=== PATIENT | male | born 1950 | race Caucasian/White ===

== ENCOUNTER 2019-08-23 08:04 | Inpatient (IN) | payer MEDICARE, SELFPAY ==
[2019-08-23] VITALS (31 sets, daily range): BP systolic 82–104; BP diastolic 39–62; PULSE 60–74; RESP 14–18; TEMP 35.9–37; O2SAT 92–97
--- NOTE | ~2019-08-23 | XR_ITS ---
XR chest 1V portable 08/23/2019 08:34 Indication: Shortness of breath Procedure: AP portable chest Comparison: No prior studies for comparison. Findings: Status post median sternotomy for CABG. Moderate cardiomegaly. Pacemaker leads in expected position. There are infiltrates of the right mid and bilateral lower lungs. There is right apical sca rring/pleural thickening. Impression: 1: Infiltrates right mid and bilateral lower lungs which may represent atelectasis, mild edema or pne umonia. 2: Moderate cardiomegaly. Reviewed, dictated and finalized at location A. Impression: 1: Infiltrates right mid and bilateral lower lungs which may represent atelecta sis, mild edema or pneumonia. 2: Moderate cardiomegaly.
--- NOTE | 2019-08-23 08:14 | ECG_ITS ---
Measurements Intervals [place] Rate: 60 P: HI: 0 QRS: 265 QRSD: 213 T: 90 QT: 538 QTc: 538 Interpretive Statements ELECTRONIC VENTRICULAR PACEMAKER NO FURTHER INTERPRETATION IS POSSIBLE ATYPICAL ECG Electronically Signed On 08-23-2019 8:50:26 CDT by Dwayne Knight D.O.
[2019-08-23 08:31] LABS: Basophils Percent Auto 0.4 % (0.2-1.2); Eosinophils Absolute Auto 0.1 K/mm3 (0-0.3); Eosinophils Percent Auto 2.1 % (0-4.4); Immature Granulocyte Absolute 0.03 K/mm3 (0.00-0.031); Immature Granulocyte Percent A 0.5 % (0-0.5); Lymphocytes Absolute Auto 0.49 K/mm3 (0.9-3.2); Lymphocytes Percent Auto 8.6 % (18.3-44.2); Mean Corpuscular HGB Conc 29.6 g/dl (32-36); Mean Corpuscular Hemoglobin 27.4 pg (26-34); Mean Corpuscular Volume 92.7 fl (80-100); Mean Platelet Volume 12.7 fl (7.4-10.4); Monocytes Absolute Auto 0.6 K/mm3 (0.1-0.6); Neutrophils Absolute Auto 4.5 K/mm3 (1.3-6.7); Neutrophils Percent Auto 78.4 % (45.5-73.1); Platelet Count Result 96 k/mm3 (150-375); Red Blood Count 2.19 M/mm3 (4.6-6.20); Red Cell Distribution Width 17.2 % (11.5-14.5); White Blood Count 5.7 K/mm3 (4.5-10.0)
[2019-08-23 08:36] LABS: Hematocrit 20.3 % (42.0-52.0)
[2019-08-23 08:42] LABS: Blood Urea Nitrogen 66 mg/dL (9-20); Calcium 9.2 mg/dL (8.4-10.2); Carbon Dioxide 30 mmol/L (22-30); Chloride 91 mmol/L (98-107); Estimated CRCL calculation 12 ml/min; Estimated Glomerular Filt Rate 10; Glucose 112 mg/dL (75-110); Potassium 5.5 mmol/L (3.4-5.0); Sodium 133 mmol/L (137-145)
[2019-08-23 08:43] LABS: INR 1.3; Prothrombin Time 15.6 Seconds (11.1-14.7)
[2019-08-23 08:44] LABS: Partial Thromboplastin Time 38.3 SECONDS (22.3-36.8)
[2019-08-23 08:45] LABS: Anisocytosis 1+ (NORMAL); Hypochromasia 1+ (NORMAL); Platelet Estimate Decreased (Adequate)
--- NOTE | 2019-08-23 08:54 | ED.RECABL ---
HPI - Recheck/Abnormal Lab/Rx General Chief Complaint: Recheck/Abnormal Lab/Rx Stated Complaint: low HGB Time Seen by Provider: 08/23/19 08:07 Source: RN notes reviewed History of Present Illness HPI narrative: Patient presents emergency department from home for low hemoglobin. Patient states he had blood drawn at dialysis on Friday and was called today and told that he cannot have dialysis today as his hemoglobin was low and he needed to go for blood transfusion. Patient states he receives a blood transfusion approximately once every 1 to 2 months. He states that he is followed by Dr. Jarvis for nephrology and receives dialysis on Friday. Patient states he has been seen by GI Dr Grier states that there has been talk about performing a flex sig in order to rule out internal hemorrhoids. Patient states he has been feeling more weak over the past several days and mild shortness of breath with exertion he denies having any fevers or chills chest pain abdominal pain nausea vomiting or any other symptoms Related Data Home Medications Medication Instructions Recorded Confirmed amiodarone 200 mg tablet 200 mg PO DAILY 08/17/19 ascorbic acid (vitamin C) 1,000 mg 1 gm PO DAILY 08/17/19 tablet atorvastatin 20 mg tablet 20 mg PO DAILY 08/17/19 cholecalciferol (vitamin D3) 125 125 mcg PO DAILY 08/17/19 mcg (5,000 unit) capsule gemfibrozil 600 mg tablet 300 mg PO BID tablet 08/17/19 glucosamine 750 gl-mwizjurgquv-qwq 2 tablet PO DAILY tablet 08/17/19 no1 644 mg-C 30 mg-daiana 1 mg tablet levothyroxine 150 mcg tablet 150 mcg PO DAILY 08/17/19 magnesium 200 mg tablet 400 mg PO DAILY tablet 08/17/19 mecobalamin (vitamin B12) 5,000 mcg PO 08/17/19 mcg disintegrating tablet metoprolol tartrate 25 mg tablet 12.5 mg PO DAILY tablet 08/17/19 mexiletine 150 mg capsule 150 mg PO Q12H cap 08/17/19 midodrine 10 mg tablet 20 mg PO TID tablet 08/17/19 Allergies Allergy/AdvReac Type Severity Reaction Status Date / Time sulfamethoxazole AdvReac Severe severe Verified 08/23/19 08:22 [From Bactrim] itching trimethoprim [From Bactrim] AdvReac Severe severe Verified 08/23/19 08:22 itching lisinopril AdvReac Cough Verified 08/23/19 08:23 Review of Systems Review of Systems: Narrative: Gen.: Denies fevers or chills ENT: Denies congestion Respiratory: Reports shortness of breath with exertion, denies cough CV: Denies chest pain or palpitations GI: Denies abdominal pain nausea, emesis or diarrhea reports chronic renal failure dialysis Musculoskeletal: Denies back pain or muscle pain Neuro: Denies numbness, tingling, weakness or focal weakness Skin: Denies rash Except as documented, all other systems reviewed and negative [facility] Past Medical History Medical History Afib Charcot foot due to diabetes mellitus CHF (congestive heart failure) Dialysis patient ESRD (end stage renal disease) Hypothyroidism Surgical History Surgical History History of bilateral knee replacement History of cardiac radiofrequency ablation (RFA) History of mitral valve repair History of tricuspid valve repair S/P implantation of automatic cardioverter/defibrillator (AICD) Social History Social History Smoking status: Never smoker Alcohol intake: never Substance use: never Substance use type: does not use Gender identity (if verbalized by the patient): Male Exam Narrative: Exam Narrative: APPEARANCE: No acute distress, nontoxic, resting in bed EYES: EOMI HEENT: Normocephalic, atraumatic, OMM RESPIRATORY: No respiratory distress Clear to auscultation bilaterally with no rhonchi wheezing or rales. CARDIOVASCULAR: Regular rate and rhythm without murmurs rubs or gallops. ABDOMINAL: Soft, nontender, nondistended, no rebound or guarding Rectal: No hemor
--- NOTE | 2019-08-23 11:15 | ADMGEN ---
This patient, Raymundo Azevedo, was admitted to Medical Room 341-01. Patient/family oriented to hospital policies and general routines including ID bracelet, bed and alarms, visiting hours, pain management, procedures, bathroom and other care routines, personal items, smoking policy, room service/diet, and visiting hours. Valuables list has been completed. Information on how to activate the Rapid Response Team has been discussed. Patient/Family are encouraged to report perceived risks to care and to ask questions if they do not understand what they are told or what they should do.
[2019-08-23 12:35] LABS: Hematocrit 19.9 % (42.0-52.0)
--- NOTE | 2019-08-23 13:09 | WPDGICN ---
Assessment and Plan Assessment and plan (1) Symptomatic anemia: Code(s): D64.9 - Anemia, unspecified Status: Acute Assessment and Plan: transfuse to keep hb>7, he has chronic anemia probably due to renal disease but also noted dark stools will proceed with egd and colonoscopy tomorrow (2) GIB (gastrointestinal bleeding): Qualifiers: GI bleed type/associated pathology: unspecified gastrointestinal hemorrhage type Qualified Code(s): K92.2 - Gastrointestinal hemorrhage, unspecified Code(s): K92.2 - Gastrointestinal hemorrhage, unspecified Status: Acute Assessment and Plan: monitor h/h more recommendations after scope start bowel prep today (3) CHF (congestive heart failure): Qualifiers: Heart failure type: unspecified Heart failure chronicity: chronic Qualified Code(s): I50.9 - Heart failure, unspecified Code(s): I50.9 - Heart failure, unspecified Status: Acute (4) ESRD (end stage renal disease): Code(s): N18.6 - End stage renal disease Status: Acute (5) Dialysis patient: Code(s): Z99.2 - Dependence on renal dialysis Status: Acute GI Consult Note Consult date/time: 08/23/19 13:09 Reason for consult: symptomatic anemia HPI: Raymundo Azevedo is a 69 year old male with history of ESRD on M-W-F for almost 1 year, DM (does not need insulin anymore), CHF s/p aicd, Afib and chronic anemia (had blood transfusion previously, every 2 months or so). He went to dialysis today but told that hb too low and sent to ER, Hb 6. He had a colonoscopy about 1 year ago at [facility], had hemorrhoids. Dr Grier has performed hemorrhoidal banding about a month ago. He noted darker stools than usual for almost a month, also more tired. He says that had EGD but several years ago. Review of Systems Constitutional: Constitutional: Denies chills, Reports fatigue and Denies headache(s) Eyes: Eyes: Denies blurry vision ENT: Reports Normal hearing present, Denies headache(s) and Denies neck pain Cardiovascular: Cardiovascular: Denies chest pain and Denies dyspnea Respiratory: Respiratory: Denies dyspnea Gastrointestinal: Gastrointestinal: Reports no additional gastrointestinal complaints Genitourinary: Comments: on dialysis Musculoskeletal: Musculoskeletal: Denies neck pain Integumentary/Breasts: Skin/Breast: Denies dry skin Neurologic: Reports Normal hearing present, Denies headache(s) and Denies weakness Psychiatric: Psychiatric: Denies anxiety Endocrine: Endocrine: Denies change in body appearance Hematologic/Lymphatic: Hematologic/Lymphatic: Denies easy bleeding Allergic/Immunologic: Allergic/Immunologic: Denies urticaria PMFSH Past Medical History Medical History Afib Charcot foot due to diabetes mellitus CHF (congestive heart failure) Dialysis patient ESRD (end stage renal disease) Hypothyroidism Surgical History Surgical History History of bilateral knee replacement History of cardiac radiofrequency ablation (RFA) History of mitral valve repair History of tricuspid valve repair S/P implantation of automatic cardioverter/defibrillator (AICD) Social History Social History Smoking status: Never smoker Alcohol intake: never Substance use: never Substance use type: does not use Gender identity (if verbalized by the patient): Male Spiritual care concerns: No Meds Home Medications and Allergies Home Medications Medication Instructions Recorded Confirmed Type amiodarone 200 mg tablet 200 mg PO DAILY 08/17/19 08/23/19 History ascorbic acid (vitamin C) 1,000 mg 1 gm PO DAILY 08/17/19 08/23/19 History tablet atorvastatin 20 mg tablet 20 mg PO DAILY 08/17/19 08/23/19 History cholecalciferol (vitamin D3) 125 125 mcg PO DAILY 08/17/19 08/23/19 History
--- NOTE | 2019-08-23 17:50 | PC.NURSE ---
To dialysis via bed.
--- NOTE | 2019-08-23 18:50 | PM.CNNEP ---
Assessment and Plan Additional Plan 1. ESRD on Hemodialysis MWF. Patient is being dialyzed and HD treatment is supervised. One unit of PRBCs is being transfused during Hemodialysis. He is tolerating hemodialysis treatment fairly well. 2. Anemia secondary to acute GI blood loss and also anemia of chronic kidney disease. We will monitor H and H. 3. Hypertension. Blood pressure has been running soft. no new meds. 4. Renal Osteodystrophy continue current meds. 5. GI BLeed. management per GI and primary team. 6. Hyperkalemia -- correct with hemodialysis treatment. we will give 2K bath during HD . Thanks for allowing us to participate in the care of this patient. we will follow him closely. History of Present Illness Reason for Consult Consult date: 08/23/19 Reason for consult: end stage renal disease Chief Complaint Chief complaint: anemia/lower GI bleed/CRF with dialysis Review of Systems Review of Systems: All systems reviewed & are unremarkable except as noted in HPI and below (HPI) [facility] Past Medical History Medical History (Updated 08/23/19 @ 13:16 by Florencio Bourgeois MD) Afib Charcot foot due to diabetes mellitus CHF (congestive heart failure) Dialysis patient ESRD (end stage renal disease) GIB (gastrointestinal bleeding) Hypothyroidism Surgical History Surgical History History of bilateral knee replacement History of cardiac radiofrequency ablation (RFA) History of mitral valve repair History of tricuspid valve repair S/P implantation of automatic cardioverter/defibrillator (AICD) Social History Social History Smoking status: Never smoker Alcohol intake: never Substance use: never Substance use type: does not use Gender identity (if verbalized by the patient): Male Spiritual care concerns: No Meds Home Medications and Allergies Home Medications Medication Instructions Recorded Confirmed Type amiodarone 200 mg tablet 200 mg PO DAILY 08/17/19 08/23/19 History ascorbic acid (vitamin C) 1,000 mg 1 gm PO DAILY 08/17/19 08/23/19 History tablet atorvastatin 20 mg tablet 20 mg PO DAILY 08/17/19 08/23/19 History cholecalciferol (vitamin D3) 125 125 mcg PO DAILY 08/17/19 08/23/19 History mcg (5,000 unit) capsule gemfibrozil 600 mg tablet 300 mg PO BID tablet 08/17/19 08/23/19 History glucosamine 750 fy-dmrybksocju-wxu 2 tablet PO DAILY tablet 08/17/19 08/23/19 History no1 644 mg-C 30 mg-daiana 1 mg tablet levothyroxine 150 mcg tablet 150 mcg PO DAILY 08/17/19 08/23/19 History magnesium 200 mg tablet 400 mg PO DAILY tablet 08/17/19 08/23/19 History mecobalamin (vitamin B12) 5,000 5,000 mcg PO DAILY 08/17/19 08/23/19 History mcg disintegrating tablet metoprolol tartrate 25 mg tablet 12.5 mg PO DAILY tablet 08/17/19 08/23/19 History mexiletine 150 mg capsule 150 mg PO Q12H cap 08/17/19 08/23/19 History midodrine 10 mg tablet 20 mg PO TID tablet 08/17/19 08/23/19 History Allergies Allergy/AdvReac Type Severity Reaction Status Date / Time sulfamethoxazole AdvReac Severe severe Verified 08/23/19 08:22 [From Bactrim] itching trimethoprim [From Bactrim] AdvReac Severe severe Verified 08/23/19 08:22 itching lisinopril AdvReac Cough Verified 08/23/19 08:23 Vital Signs Vital Signs - 24 hr 08/23/19 08:09 08/23/19 08:40 08/23/19 09:54 Temperature 36.6 C Pulse Rate 62 74 Respiratory Rate 18 18 18 Blood Pressure 104/49 L 97/53 L Pulse Oximetry 93 93 93 08/23/19 12:33 08/23/19 14:00 08/23/19 18:25 Temperature 35.9 C L 36.8 C Pulse Rate 68 66 61 Respiratory Rate 16 14 18 Blood Pressure 89/40 L 91/47 L Pulse Oximetry 96 97 97 08/23/19 18:40 Temperature 36.6 C Pulse Rate 60 Respiratory Rate 16 Blood Pressure 97/45 L Pulse Oximetry Exam Const: General: comfortable and no acute distress HENMT: Ears: TM abnormal General
[2019-08-23 20:57] LABS: Hepatitis B Surface Antigen Negative (Negative)
[2019-08-23 21:15] LABS: Hepatitis B Surface Anti Res Negative
--- NOTE | 2019-08-23 22:25 | PC.NURSE ---
Pt received from dialysis. 1 L removed and pt stable during process. Received 1 unit of blood during dialysis.
[2019-08-23] MEDS: PEG (High)/E-LYTE SOLN 4,000 ML BTL 4000 ML PO (22:34)
[2019-08-23] MEDS: BISACODYL 5 MG TABLET EC 20 MG PO (22:37)
[2019-08-23 23:22] LABS: Hematocrit 23.9 % (42.0-52.0); Hemoglobin 7.3 g/dL (14.0-18.0)
--- NOTE | 2019-08-23 23:42 | PC.NURSE ---
Pt finished bowel prep at 2330.
[2019-08-24] VITALS (23 sets, daily range): BP systolic 81–105; BP diastolic 41–56; PULSE 52–80; RESP 16–20; TEMP 36.1–36.8; O2SAT 93–100
--- NOTE | 2019-08-24 00:01 | PM.IMHP ---
H&P: HPI History of Present Illness Chief complaint: anemia/lower GI bleed/CRF with dialysis Narrative: This is a 69 year old male with known ESRD on hemodialysis M/W/F, CHF, and atrial fibrillation who presented to the hospital for evaluation of low hemoglobin and hematocrit which was checked this past Friday at the dialysis center. The patient has had ongoing dizziness, fatgue, and exertional shortness of breath. He denies any fevers, chills, chest pain, nausea, vomiting, abdominal pain, dysuria, hematuria, or focal weakness. He has noticed that he has started to have dark black stools. Approximately 3 weeks ago he had a lower GI bleed and underwent hemorrhoidal banding. At that time he also received a blood transfusion. His last colonoscopy was over 1 year ago and was normal according to him. He denies using any blood thinners. The patient was evaluated and found to have a low H/H today in the ER. He was admitted to our service and Gastroenterology has been consulted. The patient has already gotten 1 unit of pRBCs transfused and is undergoing bowel prep for a colonoscopy tomorrow. He has no other complaints at this time. Review of Systems Review of Systems: All systems reviewed & are unremarkable except as noted in HPI and below PMFSH Past Medical History Medical History (Updated 08/25/19 @ 04:02 by Tuan Harding MD) Afib Charcot foot due to diabetes mellitus CHF (congestive heart failure) Diabetes mellitus Dialysis patient ESRD (end stage renal disease) GIB (gastrointestinal bleeding) Hypothyroidism Surgical History Surgical History History of bilateral knee replacement History of cardiac radiofrequency ablation (RFA) History of mitral valve repair History of tricuspid valve repair S/P implantation of automatic cardioverter/defibrillator (AICD) Family History Family History Mother Hypertension Social History Social History Smoking status: Never smoker Alcohol intake: never Substance use: never Substance use type: does not use Gender identity (if verbalized by the patient): Male Spiritual care concerns: No Meds Home Medications and Allergies Home Medications Medication Instructions Recorded Confirmed Type amiodarone 200 mg tablet 200 mg PO DAILY 08/17/19 08/23/19 History ascorbic acid (vitamin C) 1,000 mg 1 gm PO DAILY 08/17/19 08/23/19 History tablet atorvastatin 20 mg tablet 20 mg PO DAILY 08/17/19 08/23/19 History cholecalciferol (vitamin D3) 125 125 mcg PO DAILY 08/17/19 08/23/19 History mcg (5,000 unit) capsule gemfibrozil 600 mg tablet 300 mg PO BID tablet 08/17/19 08/23/19 History glucosamine 750 it-gsittsdwgpz-kfe 2 tablet PO DAILY tablet 08/17/19 08/23/19 History no1 644 mg-C 30 mg-daiana 1 mg tablet levothyroxine 150 mcg tablet 150 mcg PO DAILY 08/17/19 08/23/19 History magnesium 200 mg tablet 400 mg PO DAILY tablet 08/17/19 08/23/19 History mecobalamin (vitamin B12) 5,000 5,000 mcg PO DAILY 08/17/19 08/23/19 History mcg disintegrating tablet metoprolol tartrate 25 mg tablet 12.5 mg PO DAILY tablet 08/17/19 08/23/19 History mexiletine 150 mg capsule 150 mg PO Q12H cap 08/17/19 08/23/19 History midodrine 10 mg tablet 20 mg PO TID tablet 08/17/19 08/23/19 History Allergies Allergy/AdvReac Type Severity Reaction Status Date / Time sulfamethoxazole AdvReac Severe severe Verified 08/23/19 08:22 [From Bactrim] itching trimethoprim [From Bactrim] AdvReac Severe severe Verified 08/23/19 08:22 itching lisinopril AdvReac Cough Verified 08/23/19 08:23 Vital Signs Vital Signs - 24 hr 08/23/19 08:09 08/23/19 08:40 08/23/19 09:54 Temperature 36.6 C Pulse Rate 62 74 Respiratory Rate 18 18 18 Blood Pressure 104/49 L 97/53 L Pulse Oximetry 93 93 93 08/23/19 12:00 08/23/19 12:33 06
[2019-08-24 00:55] LABS: Glucose Point of Care 85 (65-105)
[2019-08-24] MEDS: LEVOTHYROXINE SODIUM INJ 100 MCG/5 ML VIAL 75 MCG IV PUSH (05:45)
[2019-08-24] MEDS: MAGNESIUM CITRATE 300 ML BTL PO (05:46)
[2019-08-24 05:57] LABS: Glucose Point of Care 81 (65-105)
[2019-08-24 06:18] LABS: Basophils Percent Auto 0.2 % (0.2-1.2); Eosinophils Absolute Auto 0.1 K/mm3 (0-0.3); Eosinophils Percent Auto 2.1 % (0-4.4); Hematocrit 21.6 % (42.0-52.0); Immature Granulocyte Absolute 0.02 K/mm3 (0.00-0.031); Immature Granulocyte Percent A 0.5 % (0-0.5); Lymphocytes Absolute Auto 0.44 K/mm3 (0.9-3.2); Lymphocytes Percent Auto 10.1 % (18.3-44.2); Mean Corpuscular Hemoglobin 27.6 pg (26-34); Mean Corpuscular Volume 88.9 fl (80-100); Mean Platelet Volume 12.4 fl (7.4-10.4); Monocytes Absolute Auto 0.5 K/mm3 (0.1-0.6); Monocytes Percent Auto 10.3 % (2.6-8.5); Neutrophils Absolute Auto 3.4 K/mm3 (1.3-6.7); Neutrophils Percent Auto 76.8 % (45.5-73.1); Platelet Count Result 91 k/mm3 (150-375); Red Blood Count 2.43 M/mm3 (4.6-6.20); Red Cell Distribution Width 17.3 % (11.5-14.5); White Blood Count 4.4 K/mm3 (4.5-10.0)
[2019-08-24 06:22] LABS: Hemoglobin 6.7 g/dL (14.0-18.0)
[2019-08-24 06:33] LABS: Blood Urea Nitrogen 23 mg/dL (9-20); Calcium 8.6 mg/dL (8.4-10.2); Carbon Dioxide 37 mmol/L (22-30); Chloride 93 mmol/L (98-107); Estimated CRCL calculation 22 ml/min; Estimated Glomerular Filt Rate 22; Glucose 76 mg/dL (75-110); Potassium 3.3 mmol/L (3.4-5.0); Sodium 137 mmol/L (137-145)
[2019-08-24] MEDS: SODIUM CHLORIDE 0.9% IV 250 ML 30 ML IV CONT ×2 (07:51→13:10)
--- NOTE | 2019-08-24 09:06 | PM.PNNEP ---
Progress Note: A&P Assessment and Plan (1) GIB (gastrointestinal bleeding): Qualifiers: GI bleed type/associated pathology: unspecified gastrointestinal hemorrhage type Qualified Code(s): K92.2 - Gastrointestinal hemorrhage, unspecified Code(s): K92.2 - Gastrointestinal hemorrhage, unspecified Status: Acute (2) ESRD (end stage renal disease): Code(s): N18.6 - End stage renal disease Status: Acute Assessment and Plan: ESRD GI bleed with acute blood loss anemia Anemia of CKD SHPT DMT2 with nephropathy Hypotension Plan: Left basilar crackles, heplock IVF, getting blood, NS if needed IV later if further loss in blood PPI is OK as discussed with Hospitalist team HD in am will follow Subjective Date/time seen: 08/24/19 09:06 ESRD follow up No hematemesis, no blood noted in stool No SOB Tolerated HD yesterday Removed 2 L fluid Getting blood transfusion Exam Narrative: Exam Narrative: Average built, pale, JVD is not seen, RRR, lungs left basilar crackles, soft abdomen, no edema Objective Data Vital Signs Vital Signs: Vital Signs - 24 hr 08/23/19 09:54 08/23/19 12:00 08/23/19 12:33 Temperature Pulse Rate 74 63 68 Respiratory Rate 18 16 Blood Pressure 97/53 L Pulse Oximetry 93 96 08/23/19 14:00 08/23/19 16:00 08/23/19 17:55 Temperature 35.9 C L 36.3 C L Pulse Rate 66 62 61 Respiratory Rate 14 16 Blood Pressure 89/40 L 91/47 L Pulse Oximetry 97 08/23/19 18:11 08/23/19 18:15 08/23/19 18:25 Temperature 36.8 C Pulse Rate 60 60 61 Respiratory Rate 18 Blood Pressure 89/47 L 90/47 L 91/47 L Pulse Oximetry 97 08/23/19 18:30 08/23/19 18:40 08/23/19 18:45 Temperature 36.6 C Pulse Rate 60 60 60 Respiratory Rate 16 Blood Pressure 93/45 L 97/45 L 97/45 L Pulse Oximetry 08/23/19 19:00 08/23/19 19:09 08/23/19 19:15 Temperature 36.3 C L Pulse Rate 60 60 60 Respiratory Rate 18 Blood Pressure 93/44 L 93/44 L 96/41 L Pulse Oximetry 08/23/19 19:30 08/23/19 19:45 08/23/19 20:00 Temperature Pulse Rate 60 62 61 Respiratory Rate Blood Pressure 89/43 L 91/40 L 89/42 L Pulse Oximetry 08/23/19 20:15 08/23/19 20:30 08/23/19 20:45 Temperature Pulse Rate 60 60 64 Respiratory Rate Blood Pressure 93/43 L 88/43 L 92/47 L Pulse Oximetry 08/23/19 21:00 08/23/19 21:03 08/23/19 21:15 Temperature 37.0 C Pulse Rate 65 65 Respiratory Rate Blood Pressure 85/42 L 82/41 L Pulse Oximetry 08/23/19 21:30 08/23/19 21:45 08/23/19 21:56 Temperature 37.0 C Pulse Rate 64 63 63 Respiratory Rate 16 Blood Pressure 98/49 L 98/62 L 86/44 L Pulse Oximetry 08/23/19 22:00 08/23/19 22:32 08/24/19 00:00 Temperature 36.2 C L 36.2 C L Pulse Rate 66 66 70 Respiratory Rate 16 16 Blood Pressure 92/39 L 92/39 L Pulse Oximetry 92 92 08/24/19 02:33 08/24/19 04:00 08/24/19 05:53 Temperature 36.2 C L 36.4 C Pulse Rate 65 63 61 Respiratory Rate 16 16 Blood Pressure 98/43 L 81/43 L Pulse Oximetry 99 93 08/24/19 08:00 08/24/19 08:23 Temperature 36.2 C L 36.3 C L Pulse Rate 60 62 Respiratory Rate 16 16 Blood Pressure 90/42 L 100/56 L Pulse Oximetry 96 96 Intake/Output Intake/Output: Intake & Output 08/21/19 08/22/19 08/23/19 08/24/19 23:59 23:59 23:59 23:59 Intake Total 1080 0 Output Total 2400 Balance -1320 0 Meds/Results Medications: Active Medications Generic Name Dose Route Start Last Admin Trade Name Freq PRN Reason Stop Dose Admin Dextrose 12.5 gm 08/24/19 00:12 Dextrose 50% Syringe IV PUSH PRN PRN Hypoglycemia Protocol Glucagon 1 mg 08/24/19 00:12 Glucagon For Inj IM PRN PRN Hypoglycemia Protocol Dextrose 1,000 mls @ 100 mls/hr 08/24/19 00:12 Dextrose 5% 1,000 Ml IVPB PRN PRN Hypoglycemia Protocol Sodium Chloride 250 mls @ 30 mls/hr 08/24/19 07:30 08/24/19 07:51 Normal
--- NOTE | 2019-08-24 10:37 | WPDANESEPPF ---
Anes - Initial Pre Proc Eval Procedure: Operation Date: 08/24/19 11:15 Proposed Procedures p Esophagogastroduodenoscopy & Colonoscopy - Florencio Bourgeois MD Date/Time: 08/24/19 10:37 Surgeon: Priscilla Molina PA-C Pre Op Diagnosis: anemia/lower GI bleed/CRF with dialysis Patient Data Age: 69 Gender: M Height: 5 ft 10 in Weight: 74.3 kg Last Vital Signs Temp 97.4 F L 08/24/19 08:23 Pulse 62 08/24/19 08:23 Resp 16 08/24/19 08:23 BP 100/56 L 08/24/19 08:23 Pulse Ox 96 08/24/19 08:23 Allergies Allergy/AdvReac Type Severity Reaction Status Date / Time sulfamethoxazole AdvReac Severe severe Verified 08/23/19 08:22 [From Bactrim] itching trimethoprim [From Bactrim] AdvReac Severe severe Verified 08/23/19 08:22 itching lisinopril AdvReac Cough Verified 08/23/19 08:23 Home Medications Medication Instructions Recorded Confirmed Type amiodarone 200 mg tablet 200 mg PO DAILY 08/17/19 08/23/19 History ascorbic acid (vitamin C) 1,000 mg 1 gm PO DAILY 08/17/19 08/23/19 History tablet atorvastatin 20 mg tablet 20 mg PO DAILY 08/17/19 08/23/19 History cholecalciferol (vitamin D3) 125 125 mcg PO DAILY 08/17/19 08/23/19 History mcg (5,000 unit) capsule gemfibrozil 600 mg tablet 300 mg PO BID tablet 08/17/19 08/23/19 History glucosamine 750 ui-kyzghrxwcki-tuc 2 tablet PO DAILY tablet 08/17/19 08/23/19 History no1 644 mg-C 30 mg-daiana 1 mg tablet levothyroxine 150 mcg tablet 150 mcg PO DAILY 08/17/19 08/23/19 History magnesium 200 mg tablet 400 mg PO DAILY tablet 08/17/19 08/23/19 History mecobalamin (vitamin B12) 5,000 5,000 mcg PO DAILY 08/17/19 08/23/19 History mcg disintegrating tablet metoprolol tartrate 25 mg tablet 12.5 mg PO DAILY tablet 08/17/19 08/23/19 History mexiletine 150 mg capsule 150 mg PO Q12H cap 08/17/19 08/23/19 History midodrine 10 mg tablet 20 mg PO TID tablet 08/17/19 08/23/19 History Laboratory Tests 08/23/19 08/23/19 08/23/19 08:22 12:16 19:35 WBC RBC Hgb 6.0 g/dL L* g/dL (14.0-18.0) Hct 19.9 % L* % (42.0-52.0) MCV MCH MCHC RDW Plt Count MPV Immature Gran % (Auto) Neut % (Auto) Lymph % (Auto) [place] % (Auto) Eos % (Auto) Baso % (Auto) Lymph # (Auto) [place] # (Auto) Eos # (Auto) Baso # (Auto) Abs Immat Gran (auto) Absolute Neuts (auto) Absolute Nucleated RBC Nucleated RBC % Sodium Potassium Chloride Carbon Dioxide BUN Creatinine Estim Creat Clear Calc Estimated GFR Glucose POC Capillary Glucose Calcium Hep Bs Antigen Negative (Negative) Hep Bs Antibody Blood Type A Positive Antibody Screen Negative Crossmatch See Detail 08/23/19 08/23/19 08/24/19 19:35 23:16 00:46 WBC RBC Hgb 7.3 g/dL L g/dL (14.0-18.0) Hct 23.9 % L % (42.0-52.0) MCV MCH MCHC RDW Plt Count MPV Immature Gran % (Auto) Neut % (Auto) Lymph % (Auto) [place] % (Auto) Eos % (Auto) Baso % (Auto) Lymph # (Auto) [place] # (Auto) Eos # (Auto) Baso # (Auto) Abs Immat Gran (auto) Absolute Neuts (auto) Absolute Nucleated RBC Nucleated RBC % Sodium Potassium Chloride Carbon Dioxide BUN Creatinine Estim Creat Clear Calc Feli
[2019-08-24 10:39] LABS: Glucose Point of Care 67 (65-105)
[2019-08-24] MEDS: SODIUM CHLORIDE 0.9% IV 500 ML IV CONT (10:56)
--- NOTE | 2019-08-24 12:52 | PC.NURSE ---
Pt returned from GI lab.
[2019-08-24] MEDS: PANTOPRAZOLE SODIUM IV 40 MG VIAL IV PUSH ×2 (13:00→21:09)
[2019-08-24 13:10] LABS: Glucose Point of Care 93 (65-105)
--- NOTE | 2019-08-24 15:12 | PM.IMPN ---
Progress Note: A&P Assessment and Plan (1) GIB (gastrointestinal bleeding): Qualifiers: GI bleed type/associated pathology: unspecified gastrointestinal hemorrhage type Qualified Code(s): K92.2 - Gastrointestinal hemorrhage, unspecified Code(s): K92.2 - Gastrointestinal hemorrhage, unspecified Status: Acute Assessment and Plan: -----AVM noted on EGD but did not appear to be acutely bleeding. This was cauterized. Patient likely has a combination of blood loss anemia with chronic anemia due to kidney disease. He is getting 2 units of blood today and we will recheck an H&H tomorrow morning. May discharge in the morning if he continues to be stable. Blood pressures are low but he is not having any symptoms of blood loss. Continue pantoprazole b.i.d. at this time (2) Symptomatic anemia: Code(s): D64.9 - Anemia, unspecified Status: Acute Assessment and Plan: -----patient is receiving another 2 units of blood today. See above. (3) Hypothyroidism: Code(s): E03.9 - Hypothyroidism, unspecified Status: Acute Assessment and Plan: -----continue levothyroxine. (4) CHF (congestive heart failure): Qualifiers: Heart failure type: unspecified Heart failure chronicity: chronic Qualified Code(s): I50.9 - Heart failure, unspecified Code(s): I50.9 - Heart failure, unspecified Status: Acute Assessment and Plan: -----history of CHF, no signs of fluid overload at this time. Fluids have been stopped. (5) Afib: Code(s): I48.91 - Unspecified atrial fibrillation Status: Acute Assessment and Plan: -----will continue amiodarone but hold metoprolol in light of acute blood loss. (6) ESRD (end stage renal disease): Code(s): N18.6 - End stage renal disease Status: Acute Assessment and Plan: -----continue scheduled dialysis Friday/Friday/Friday. Dr. Vincent has seen the patient (7) Diabetes mellitus: Code(s): E11.9 - Type 2 diabetes mellitus without complications Status: Acute Assessment and Plan: -----Pt is diet controlled and is no longer on medications. Additional Plan Date of service was 08/23/2019 at 23:00 hrs. Time Spent With Patient Time with patient: 25 - 35 minutes Subjective Date/time seen: 08/24/19 15:12 Interval history: Pt is a 69-year-old male here for anemia Priscilla Molina PA-C. Patient was seen today and states he is doing well. He has a lot more energy and overall feeling better today. He denies chest pain, shortness of breath, dizziness, lightheadedness, nausea, vomiting, fevers or chills. Review of Systems Review of Systems: All systems reviewed & are unremarkable except as noted in HPI and below Exam Narrative: Exam Narrative: General: Well developed well nourished patient resting in bed in NAD HEENT: normocephalic Neck: supple Neuro: Alert and oriented x4 CV:RRR with loud murmur which correlates with his dialysis port Resp:CTA Abd: Soft, non distended. No pain to palpation. Positive bowel sounds Extremities: No swelling, erythema, or pain to palpation. Objective Data Vital Signs Vital Signs: Vital Signs - 24 hr 08/23/19 16:00 08/23/19 17:55 08/23/19 18:11 Temperature 97.4 F L Pulse Rate 62 61 60 Respiratory Rate 16 Blood Pressure 91/47 L 89/47 L Pulse Oximetry 08/23/19 18:15 08/23/19 18:25 08/23/19 18:30 Temperature 98.2 F Pulse Rate 60 61 60 Respiratory Rate 18 Blood Pressure 90/47 L 91/47 L 93/45 L Pulse Oximetry 97 08/23/19 18:40 08/23/19 18:45 08/23/19 19:00 Temperature 97.8 F Pulse Rate 60 60 60 Respiratory Rate 16 Blood Pressure 97/45 L 97/45 L 93/44 L Pulse Oximetry 08/23/19 19:09 08/23/19 19:15 08/23/19 19:30 Temperature 97.4 F L Pulse Rate 60 60 60 Respiratory Rate 18 Blood Pressure 93/44 L 96/41 L 89/43 L Pulse Oximetry 08/23/19 19:45
[2019-08-24 16:29] LABS: Glucose Point of Care 150 (65-105)
[2019-08-24 17:37] LABS: Hematocrit 28.3 % (42.0-52.0); Hemoglobin 8.7 g/dL (14.0-18.0)
[2019-08-24 21:50] LABS: Glucose Point of Care 160 (65-105)
[2019-08-25] VITALS (19 sets, daily range): BP systolic 81–96; BP diastolic 41–52; PULSE 58–69; RESP 16; TEMP 36.3–37.1; O2SAT 96
[2019-08-25] MEDS: LEVOTHYROXINE SODIUM INJ 100 MCG/5 ML VIAL 75 MCG IV PUSH (05:46)
[2019-08-25 06:12] LABS: Hematocrit 26.4 % (42.0-52.0); Hemoglobin 8.2 g/dL (14.0-18.0); Mean Corpuscular HGB Conc 31.1 g/dl (32-36); Mean Corpuscular Hemoglobin 28.1 pg (26-34); Mean Corpuscular Volume 90.4 fl (80-100); Mean Platelet Volume 13.1 fl (7.4-10.4); Platelet Count Result 85 k/mm3 (150-375); Red Blood Count 2.92 M/mm3 (4.6-6.20); Red Cell Distribution Width 16.6 % (11.5-14.5); White Blood Count 3.8 K/mm3 (4.5-10.0)
[2019-08-25 06:24] LABS: Albumin Level 3.8 g/dL (3.5-5.1); Blood Urea Nitrogen 33 mg/dL (9-20); Calcium 8.8 mg/dL (8.4-10.2); Carbon Dioxide 34 mmol/L (22-30); Chloride 92 mmol/L (98-107); Estimated CRCL calculation 15 ml/min; Estimated Glomerular Filt Rate 14; Glucose 115 mg/dL (75-110); Phosphorus 4.9 mg/dL (2.5-4.5); Potassium 3.6 mmol/L (3.4-5.0); Sodium 136 mmol/L (137-145)
[2019-08-25 07:58] LABS: Glucose Point of Care 119 (65-105)
--- NOTE | 2019-08-25 08:23 | PM.DS ---
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 and duodenum without bleeding Status: Acute (2) Symptomatic anemia: Code(s): D64.9 - Anemia, unspecified Status: Acute (3) GIB (gastrointestinal bleeding): Qualifiers: GI bleed type/associated pathology: unspecified gastrointestinal hemorrhage type Qualified Code(s): K92.2 - Gastrointestinal hemorrhage, unspecified Code(s): K92.2 - Gastrointestinal hemorrhage, unspecified Status: Acute Assessment and Plan: likely d/t intermitten bleeding of above AVM (4) Hypothyroidism: Code(s): E03.9 - Hypothyroidism, unspecified Status: Chronic (5) CHF (congestive heart failure): Qualifiers: Heart failure chronicity: chronic Heart failure type: unspecified Qualified Code(s): I50.9 - Heart failure, unspecified Code(s): I50.9 - Heart failure, unspecified Status: Chronic (6) Afib: Code(s): I48.91 - Unspecified atrial fibrillation Status: Chronic (7) ESRD (end stage renal disease): Code(s): N18.6 - End stage renal disease Status: Chronic (8) Diabetes mellitus: Code(s): E11.9 - Type 2 diabetes mellitus without complications Status: Chronic DS: Summary Hospital Course Reason for hospitalization: Symptomatic anemia Hospital Course: Patient is a 69-year-old male who presented emergency room for abnormal labs and a hemoglobin of 6.0. The patient states he has had to receive blood transfusions recently every 1-2 months. According to him, He has previously seen 2 button spindler at can't find anything wrong with him and he has even underwent a bone marrow biopsy. The patient had been feeling more weak and short of breath in the last few days. White blood cell count was normal. Chem panel consistent with end-stage renal disease on dialysis. He was given 3 units of blood and underwent a colonoscopy an EGD. The colonoscopy showed diverticulosis without bleeding, hemorrhoids, and a colonic polyp. EGD revealed a duodenal AVM which did not have any evidence of active bleeding. The patient's hemoglobin remained stable after his transfusions. He had some low blood pressures but it looks like he has had this issue in the past and is on midodrine. He also had some bradycardia which did not seem to be affecting him but I have called his research associate policy Dr. Meyer and he recommends stopping metoprolol. I also called his primary care physician and let him know the current findings and he is going to repeat H&H next week and see him in follow-up. Overall, the patient felt back to his baseline and was dialyzed here at the hospital 08/25/19. He is to resume his normal dialysis routine. He was educated about the worrisome signs and symptoms to come back to the emergency room for and was discharged in stable condition. Status at Discharge Functional status at discharge: independent ambulation Overall status at discharge: patient is back to baseline Time Spent with Patient Time attestation: Total time spent providing and/or coordinating discharge services:34 min Time spent: Greater than 30 minutes Exam Narrative: Exam Narrative: General: Well developed well nourished patient resting in bed in NAD HEENT: normocephalic Neck: supple Neuro: Alert and oriented x4 CV:RRR with loud murmur which correlates with his dialysis port Resp:CTA Abd: Soft, non distended. No pain to palpation. Positive bowel sounds Extremities: No swelling, erythema, or pain to palpation. DS: Data Data Completed and Pending Pending studies at discharge: Pending at discharge 08/24/19 12:24 Surgical [PTH] Routine Labs on day of discharge: Labs from last 24 hours 08/25/19 08/25/19 08/25/19 07:55 05:44 05:44 WBC 3.8 L RBC
[2019-08-25 08:41] LABS: Lactate Dehydrogenase 405 U/L (313-618)
[2019-08-25 08:48] LABS: Transferrin 299 mg/dL (206-381)
--- NOTE | 2019-08-25 09:14 | PC.NURSE ---
Pt to dialysis.
[2019-08-25 09:49] LABS: Folic Acid 16.8 ng/mL (2.76->20); Vitamin B12 > 1000.0 pg/mL (239-931)
[2019-08-25 10:08] LABS: Iron 70 ug/dL (49-181)
[2019-08-25 10:17] LABS: Percent Iron Saturation 18 % (20-50)
[2019-08-25 10:41] LABS: Hepatitis B Surface Antigen Negative (Negative)
[2019-08-25 10:46] LABS: HAV RESULT Negative (Negative); Hepatitis B Core IgM Result Negative (Negative)
[2019-08-25 10:58] LABS: Hepatitis C Virus Antibody Negative (Negative)
[2019-08-25 11:19] LABS: Free T4 Free Thyroxine Reflex 2.14 ng/dL (0.78-2.19)
--- NOTE | 2019-08-25 11:58 | WPDGIPROGNO ---
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 - Angiodysplasia of stomach and duodenum without bleeding Status: Acute Assessment and Plan: egd with small non-bleeding avm in duodenum but ablated with apc ok to go home by gi standpoint (2) Symptomatic anemia: Code(s): D64.9 - Anemia, unspecified Status: Acute Assessment and Plan: probably combination of chronic disease, esrd, etc no stigmata of recent bleeding (3) ESRD (end stage renal disease): Code(s): N18.6 - End stage renal disease Status: Chronic (4) Dialysis patient: Code(s): Z99.2 - Dependence on renal dialysis Status: Acute (5) Colon polyp: Qualifiers: Colon location: unspecified part of colon Code(s): K63.5 - Polyp of colon Status: Acute Assessment and Plan: next colonoscopy in 5 years Subjective Date/time seen: 08/25/19 11:58 Interval history: he is on dialysis now, doing great, no report of bleeding. Review of Systems Review of Systems: All systems reviewed & are unremarkable except as noted in HPI and below Exam Const: General: comfortable and no acute distress HENMT: General nose exam: Normal nares present Eyes: General: appearance normal, both eyes and all related structures Neck: Neck: no JVD Resp: Auscultation: clear to auscultation bilaterally Cardio: Rate: regular rate Rhythm: regular rhythm GI: Inspection: non-distended GI Palp: Yes Soft to palpation Auscultation: normal bowel sounds Skin: General skin exam: normal color Neuro: General: gait normal Speech: normal speech Extrem: General: normal to inspection Other: right av graft Psych: Mental Status: mental status grossly normal Objective Data Vital Signs Vital Signs: Vital Signs - 24 hr 08/24/19 12:00 08/24/19 12:23 08/24/19 12:34 Temperature 98.3 F Pulse Rate 67 80 61 Respiratory Rate 18 16 18 Blood Pressure 84/53 L 91/50 L 94/46 L Pulse Oximetry 99 100 96 08/24/19 12:44 08/24/19 12:55 08/24/19 13:10 Temperature 97.4 F L 97.4 F L Pulse Rate 61 62 62 Respiratory Rate 20 16 16 Blood Pressure 94/47 L 102/43 L 98/42 L Pulse Oximetry 100 98 98 08/24/19 13:11 08/24/19 13:50 08/24/19 14:00 Temperature 97.4 F L 97.6 F 98.2 F Pulse Rate 60 64 64 Respiratory Rate 16 16 16 Blood Pressure 98/42 L 103/48 L 105/50 L Pulse Oximetry 98 96 97 08/24/19 14:50 08/24/19 15:50 08/24/19 16:00 Temperature 97.6 F 97.4 F L Pulse Rate 64 64 63 Respiratory Rate 16 16 Blood Pressure 102/46 L 105/51 L Pulse Oximetry 96 96 08/24/19 16:41 08/24/19 20:00 08/24/19 20:53 Temperature 97.7 F 97.7 F Pulse Rate 61 62 61 Respiratory Rate 16 16 Blood Pressure 97/41 L 97/41 L Pulse Oximetry 94 94 08/25/19 00:00 08/25/19 04:00 08/25/19 05:23 Temperature 97.3 F L Pulse Rate 69 68 58 L Respiratory Rate 16 Blood Pressure 96/49 L Pulse Oximetry 96 08/25/19 08:00 08/25/19 09:15 08/25/19 09:26 Temperature 97.8 F Pulse Rate 66 63 62 Respiratory Rate 16 Blood Pressure 96/45 L 91/52 L Pulse Oximetry 08/25/19 09:46 08/25/19 10:00 08/25/19 10:15 Temperature 97.8 F Pulse Rate 63 63 Respiratory Rate Blood Pressure 96/45 L 95/45 L Pulse Oximetry 08/25/19 10:45 08/25/19 11:15 Temperature Pulse Rate 61 62 Respiratory Rate Blood Pressure 91/46 L 95/45 L Pulse Oximetry Intake/Output Intake/Output: Intake & Output 08/22/19 08/23/19 08/24/19 08/25/19 23:59 23:59 23:59 23:59 Intake Total 1080 2230 680 Output Total 2400 Balance -1320 2230 680 Meds/Results Medications: Active Medications Generic Name Dose Route Start Last Admin Trade Name Freq PRN Reason Stop Dose Admin Amiodarone HCl 200 mg 08/25/19 09:00 Pacerone PO DAILY [facility] Atorvastatin Calcium 20 mg 08/25/19 09:00 Lipitor PO DAILY RAFAELA Dextrose 12.5 gm 08/24/19 00:
--- NOTE | 2019-08-25 12:00 | PM.PNNEP ---
Progress Note: A&P Assessment and Plan (1) ESRD (end stage renal disease): Code(s): N18.6 - End stage renal disease Status: Chronic Assessment and Plan: Stable with end-stage renal disease, anemia stable, discharge planning in progress. Will follow up with ESRD and related needs on an outpatient basis. Hemoglobin is 8.2. Erythrocyte stimulating agents on an outpatient basis. Subjective Date/time seen: 08/25/19 12:00 Interval history: Seen and examined on hemodialysis Patient is being seen for ESRD follow-up Is feeling better today No shortness of breath No nausea vomiting Exam Narrative: Exam Narrative: Seen and examined on hemodialysis and hemodialysis supervise, no JVD negative, regular rate rhythm, lungs clear abdomen soft abdomen: Edema negative Objective Data Vital Signs Vital Signs: Vital Signs - 24 hr 08/24/19 12:23 08/24/19 12:34 08/24/19 12:44 Temperature Pulse Rate 80 61 61 Respiratory Rate 16 18 20 Blood Pressure 91/50 L 94/46 L 94/47 L Pulse Oximetry 100 96 100 08/24/19 12:55 08/24/19 13:10 08/24/19 13:11 Temperature 36.3 C L 36.3 C L 36.3 C L Pulse Rate 62 62 60 Respiratory Rate 16 16 16 Blood Pressure 102/43 L 98/42 L 98/42 L Pulse Oximetry 98 98 98 08/24/19 13:50 08/24/19 14:00 08/24/19 14:50 Temperature 36.4 C 36.8 C 36.4 C Pulse Rate 64 64 64 Respiratory Rate 16 16 16 Blood Pressure 103/48 L 105/50 L 102/46 L Pulse Oximetry 96 97 96 08/24/19 15:50 08/24/19 16:00 08/24/19 16:41 Temperature 36.3 C L 36.5 C Pulse Rate 64 63 61 Respiratory Rate 16 16 Blood Pressure 105/51 L 97/41 L Pulse Oximetry 96 94 08/24/19 20:00 08/24/19 20:53 08/25/19 00:00 Temperature 36.5 C Pulse Rate 62 61 69 Respiratory Rate 16 Blood Pressure 97/41 L Pulse Oximetry 94 08/25/19 04:00 08/25/19 05:23 08/25/19 08:00 Temperature 36.3 C L Pulse Rate 68 58 L 66 Respiratory Rate 16 Blood Pressure 96/49 L Pulse Oximetry 96 08/25/19 09:15 08/25/19 09:26 08/25/19 09:46 Temperature 36.6 C 36.6 C Pulse Rate 63 62 Respiratory Rate 16 Blood Pressure 96/45 L 91/52 L Pulse Oximetry 08/25/19 10:00 08/25/19 10:15 08/25/19 10:45 Temperature Pulse Rate 63 63 61 Respiratory Rate Blood Pressure 96/45 L 95/45 L 91/46 L Pulse Oximetry 08/25/19 11:15 Temperature Pulse Rate 62 Respiratory Rate Blood Pressure 95/45 L Pulse Oximetry Intake/Output Intake/Output: Intake & Output 08/22/19 08/23/19 08/24/19 08/25/19 23:59 23:59 23:59 23:59 Intake Total 1080 2230 680 Output Total 2400 Balance -1320 2230 680 Meds/Results Medications: Active Medications Generic Name Dose Route Start Last Admin Trade Name Freq PRN Reason Stop Dose Admin Amiodarone HCl 200 mg 08/25/19 09:00 Pacerone PO DAILY [facility] Atorvastatin Calcium 20 mg 08/25/19 09:00 Lipitor PO DAILY [facility] Dextrose 12.5 gm 08/24/19 00:12 Dextrose 50% Syringe IV PUSH PRN PRN Hypoglycemia Protocol Gemfibrozil 300 mg 08/24/19 16:30 08/25/19 05:47 Gemfibrozil PO 300 mg BIDAC RAFAELA Administration Glucagon 1 mg 08/24/19 00:12 Glucagon For Inj IM PRN PRN Hypoglycemia Protocol Dextrose 1,000 mls @ 100 mls/hr 08/24/19 00:12 Dextrose 5% 1,000 Ml IVPB PRN PRN Hypoglycemia Protocol Insulin Aspart 2 - 5 units 08/24/19 17:00 08/25/19 08:04 Novolog SUB-Q Not Given TIDWM [facility] Protocol Levothyroxine Sodium 75 mcg 08/24/19 06:30 08/25/19 05:46 Synthroid Inj IV PUSH 75 mcg DAILY@0630 RAFAELA Administration Magnesium Oxide 400 mg 08/25/19 09:00 Mag-Ox PO DAILY [facility] Pantoprazole Sodium 40 mg 08/24/19 09:00 08/24/19 21:09 Protonix Iv IV PUSH 40 mg Q12HR RAFAELA Administration Radiology Results: ITS Impressions Chest X-Ray 08/23/19 08:36 Impression: 1: Infiltrates right mid and bilateral lower lungs which may represent atelectas
[2019-08-25 12:08] LABS: Total Triiodothyronine (T3) 1.01 NG/ML (0.97-1.69)
[2019-08-25] MEDS: PANTOPRAZOLE SODIUM IV 40 MG VIAL IV PUSH (14:36)
[2019-08-25] MEDS: MAGNESIUM OXIDE 400 MG TABLET PO (14:37)
[2019-08-25] MEDS: ATORVASTATIN 20 MG TABLET PO (14:37)
[2019-08-25] MEDS: AMIODARONE HCL 200 MG TABLET PO (14:37)
[2019-08-25 14:53] LABS: Glucose Point of Care 75 (65-105)
== END 2019-08-25 15:14 | disposition home or self-care (01) | DRG 377 ==
LOC: ANHED 09:10 → ANH3MED 10:06
PROVIDERS: Hospitalist; Internal Medicine Gastroenterology; Physician Assistant; Admitting Provider Hospitalist; Emergency Provider Emergency Medicine; PCP Family Medicine; Visit Provider Family Medicine
PROC: 0DJ08ZZ Inspection of Upper Intestinal Tract, Via Natural or Artificial Opening Endoscopic (ICD-10-PCS; CPT 43235; principal; 2019-08-24 11:15)
DX: K31.811 Angiodysplasia of stomach and duodenum with bleeding (principal); N18.6 End stage renal disease; D62 Acute posthemorrhagic anemia; I48.20 Chronic atrial fibrillation, unspecified; E11.22 Type 2 diabetes mellitus with diabetic chronic kidney disease; E11.21 Type 2 diabetes mellitus with diabetic nephropathy; N25.0 Renal osteodystrophy; E87.5 Hyperkalemia; R19.5 Other fecal abnormalities; D63.1 Anemia in chronic kidney disease; K63.5 Polyp of colon; K57.30 Diverticulosis of large intestine without perforation or abscess without bleeding; K64.8 Other hemorrhoids; R00.1 Bradycardia, unspecified; K46.9 Unspecified abdominal hernia without obstruction or gangrene; E03.9 Hypothyroidism, unspecified; I50.9 Heart failure, unspecified; Z96.653 Presence of artificial knee joint, bilateral; Z99.2 Dependence on renal dialysis; Z95.810 Presence of automatic (implantable) cardiac defibrillator
CPT/HCPCS: 36415; 36430; 71045; 80048; 80069; 80074; 82607; 82728; 82746; 83540; 83550; 83615; 84439; 84443; 84466; 84480; 85014; 85018; 85025; 85027; 85610; 85730; 86706; 86850; 86900; 86901; 86923; 87340; 88305; 93005; 99285; A9270; C9113; G0257; J2370; J2704; J7040; J7050; J7120; P9016

== ENCOUNTER 2019-08-31 00:04 | Emergency (ER) | payer MEDICARE, SELFPAY ==
[2019-08-31 00:11] VITALS: BP 86/42; PULSE 68; RESP 18; TEMP 36.6; O2SAT 98
[2019-08-31 00:16] VITALS: BP 91/51; PULSE 68; RESP 20; TEMP 36.8; O2SAT 98
--- NOTE | 2019-08-31 00:30 | ED.NAVMDI ---
HPI - Nausea/Vomiting/Diarrhea General Chief complaint: Nausea/Vomiting/Diarrhea Stated complaint: diarrhea x5 days, fever Time Seen by Provider: 08/31/19 00:11 History of Present Illness HPI Narrative: Brought in from home by private vehicle for felisha. He was recently discharged from the hospital. During that visit he had a colonoscopy, which he is blaming for his symptoms. He has not had any dark or bloody stools. He has had decreased PO intake, generalized weakness and fatigue. He was noted to be hypotensive during traige. The patient and his report that this is normal for him. Chart review confirms that this is his baseline blood pressure. Related Data Home Medications Medication Instructions Recorded Confirmed amiodarone 200 mg tablet 200 mg PO DAILY 08/17/19 08/23/19 ascorbic acid (vitamin C) 1,000 mg 1 gm PO DAILY 08/17/19 08/23/19 tablet atorvastatin 20 mg tablet 20 mg PO DAILY 08/17/19 08/23/19 cholecalciferol (vitamin D3) 125 125 mcg PO DAILY 08/17/19 08/23/19 mcg (5,000 unit) capsule gemfibrozil 600 mg tablet 300 mg PO BID tablet 08/17/19 08/23/19 glucosamine 750 [id number] 2 tablet PO DAILY tablet 08/17/19 08/23/19 no1 644 mg-C 30 mg-daiana 1 mg tablet levothyroxine 150 mcg tablet 150 mcg PO DAILY 08/17/19 08/23/19 magnesium 200 mg tablet 400 mg PO DAILY tablet 08/17/19 08/23/19 mecobalamin (vitamin B12) 5,000 5,000 mcg PO DAILY 08/17/19 08/23/19 mcg disintegrating tablet mexiletine 150 mg capsule 150 mg PO Q12H cap 08/17/19 08/23/19 midodrine 10 mg tablet 20 mg PO TID tablet 08/17/19 08/23/19 Allergies Allergy/AdvReac Type Severity Reaction Status Date / Time sulfamethoxazole AdvReac Severe severe Verified 08/31/19 00:21 [From Bactrim] itching trimethoprim [From Bactrim] AdvReac Severe severe Verified 08/31/19 00:21 itching lisinopril AdvReac Cough Verified 08/31/19 00:21 Review of Systems Review of Systems: All systems reviewed & are unremarkable except as noted in HPI and below Constitutional: Constitutional: Denies chills, Reports fatigue and Denies fever(s) Cardiovascular: Cardiovascular: Reports chest pain Respiratory: Respiratory: Reports dyspnea Gastrointestinal: Gastrointestinal: Denies abdominal pain, Reports diarrhea, Denies nausea and Denies vomiting Neurologic: Denies dizziness and Denies syncope PMFSH Past Medical History Medical History Afib Charcot foot due to diabetes mellitus CHF (congestive heart failure) Colon polyp Diabetes mellitus Dialysis patient ESRD (end stage renal disease) GIB (gastrointestinal bleeding) Hypothyroidism Surgical History Surgical History History of bilateral knee replacement History of cardiac radiofrequency ablation (RFA) History of mitral valve repair History of tricuspid valve repair S/P implantation of automatic cardioverter/defibrillator (AICD) Family History Family History Mother Hypertension Social History Social History Smoking status: Never smoker Alcohol intake: never Substance use: never Substance use type: does not use Gender identity (if verbalized by the patient): Male Spiritual care concerns: No Exam Const: General: no acute distress, alert and ill appearing Orientation/consciousness: patient oriented x3 HENMT: Mouth: Yes dry mucous membranes Resp: Effort & Inspection: normal respiratory effort Auscultation: clear to auscultation bilaterally Cardio: Rate: regular rate Rhythm: regular rhythm GI: Inspection: non-distended GI Palp: Yes Soft to palpation and No Tenderness to palpation present (GI) Auscultation: normal bowel sounds Skin: General skin exam: normal color Neuro: General: patient oriented x3, moves all extremities, no focal motor defi
[2019-08-31] MEDS: SODIUM CHLORIDE 0.9% IV 500 ML 999 ML IV CONT (01:38)
[2019-08-31 01:48] LABS: Basophils Percent Auto 0.4 % (0.2-1.2); Eosinophils Absolute Auto 0.1 K/mm3 (0-0.3); Eosinophils Percent Auto 1.8 % (0-4.4); Hematocrit 26.6 % (42.0-52.0); Immature Granulocyte Absolute 0.01 K/mm3 (0.00-0.031); Immature Granulocyte Percent A 0.2 % (0-0.5); Lymphocytes Absolute Auto 0.46 K/mm3 (0.9-3.2); Lymphocytes Percent Auto 8.4 % (18.3-44.2); Mean Corpuscular HGB Conc 30.1 g/dl (32-36); Mean Corpuscular Volume 89.9 fl (80-100); Monocytes Absolute Auto 0.9 K/mm3 (0.1-0.6); Monocytes Percent Auto 16.2 % (2.6-8.5); Platelet Count Result 97 k/mm3 (150-375); Red Blood Count 2.96 M/mm3 (4.6-6.20); Red Cell Distribution Width 15.7 % (11.5-14.5); White Blood Count 5.5 K/mm3 (4.5-10.0)
[2019-08-31 01:58] LABS: Ammonia < 9 umol/L (9-30)
[2019-08-31 01:59] LABS: Alanine Aminotransferase 9 U/L (4-50); Albumin Level 3.8 g/dL (3.5-5.1); Alkaline Phosphatase 142 U/L (38-126); Aspartate Amino Transferase 21 U/L (17-59); Bilirubin,Total 0.7 mg/dL (0.2-1.3); Blood Urea Nitrogen 34 mg/dL (9-20); Carbon Dioxide 35 mmol/L (22-30); Chloride 89 mmol/L (98-107); Estimated Glomerular Filt Rate 15; Glucose 131 mg/dL (75-110); Potassium 3.5 mmol/L (3.4-5.0); Sodium 132 mmol/L (137-145)
[2019-08-31 02:16] VITALS: BP 88/50; PULSE 60; RESP 13; O2SAT 95
--- NOTE | 2019-08-31 02:19 | PC.NURSE ---
Patient fell asleep on stretcher, his oxygen saturation decreased to 88%,Patient placedon 1L of oxygen via [place].
[2019-08-31 03:38] VITALS: BP 88/50; PULSE 69; RESP 20; TEMP 36.6; O2SAT 99
== END 2019-08-31 03:42 | disposition home or self-care (01) ==
PROVIDERS: Emergency Provider Emergency Medicine; PCP Family Medicine
DX: E86.0 Dehydration (principal); R19.7 Diarrhea, unspecified; I48.91 Unspecified atrial fibrillation; E11.610 Type 2 diabetes mellitus with diabetic neuropathic arthropathy; Z79.84 Long term (current) use of oral hypoglycemic drugs; I50.9 Heart failure, unspecified; E11.22 Type 2 diabetes mellitus with diabetic chronic kidney disease; N18.6 End stage renal disease; Z96.653 Presence of artificial knee joint, bilateral
CPT/HCPCS: 36415; 80053; 82140; 85025; 96360; 99283; J7040

== ENCOUNTER 2019-09-27 12:11 | Emergency (ER) | payer MEDICARE, SELFPAY ==
[2019-09-27 12:18] VITALS: BP 91/45; PULSE 83; RESP 19; TEMP 36.5; O2SAT 100
[2019-09-27 14:16] LABS: Basophils Percent Auto 0.3 % (0.2-1.2); Eosinophils Absolute Auto 0.1 K/mm3 (0-0.3); Eosinophils Percent Auto 2.6 % (0-4.4); Hematocrit 23.7 % (42.0-52.0); Hemoglobin 7.2 g/dL (14.0-18.0); Immature Granulocyte Absolute 0.02 K/mm3 (0.00-0.031); Immature Granulocyte Percent A 0.5 % (0-0.5); Lymphocytes Absolute Auto 0.36 K/mm3 (0.9-3.2); Lymphocytes Percent Auto 9.5 % (18.3-44.2); Mean Corpuscular HGB Conc 30.4 g/dl (32-36); Mean Corpuscular Hemoglobin 26.5 pg (26-34); Mean Corpuscular Volume 87.1 fl (80-100); Mean Platelet Volume 12.8 fl (7.4-10.4); Monocytes Absolute Auto 0.5 K/mm3 (0.1-0.6); Monocytes Percent Auto 12.7 % (2.6-8.5); Neutrophils Absolute Auto 2.8 K/mm3 (1.3-6.7); Neutrophils Percent Auto 74.4 % (45.5-73.1); Platelet Count Result 111 k/mm3 (150-375); Red Blood Count 2.72 M/mm3 (4.6-6.20); Red Cell Distribution Width 16.9 % (11.5-14.5); White Blood Count 3.8 K/mm3 (4.5-10.0)
[2019-09-27 14:27] LABS: Blood Urea Nitrogen 16 mg/dL (9-20); Calcium 9.1 mg/dL (8.4-10.2); Carbon Dioxide 37 mmol/L (22-30); Chloride 91 mmol/L (98-107); Estimated CRCL calculation 24 ml/min; Estimated Glomerular Filt Rate 23; Glucose 99 mg/dL (75-110); Potassium 4.1 mmol/L (3.4-5.0); Sodium 137 mmol/L (137-145)
--- NOTE | 2019-09-27 14:51 | ED.GENADULT ---
HPI - General Adult General Chief complaint: Recheck/Abnormal Lab/Rx Stated complaint: low H&H Time Seen by Provider: 09/27/19 12:37 History of Present Illness HPI narrative: Patient is a 69-year-old male who presents the ER with abnormal lab work. Reports that dialysis 2 days ago he had routine lab work drawn. Today when he was at dialysis they told him his hemoglobin was 7 he should come here to be evaluated. Patient has end-stage renal disease and receives injections to increase his red blood cells. He is followed by Dr. Vincent. Patient reports he has had no black stools. He is without any shortness of breath or dizziness cold intolerance. Patient has chronically depressed blood pressures in the 90s systolic. Related Data Home Medications Medication Instructions Recorded Confirmed amiodarone 200 mg tablet 200 mg PO DAILY 08/17/19 08/23/19 ascorbic acid (vitamin C) 1,000 mg 1 gm PO DAILY 08/17/19 08/23/19 tablet atorvastatin 20 mg tablet 20 mg PO DAILY 08/17/19 08/23/19 cholecalciferol (vitamin D3) 125 125 mcg PO DAILY 08/17/19 08/23/19 mcg (5,000 unit) capsule glucosamine 750 [id number] 2 tablet PO DAILY tablet 08/17/19 08/23/19 no1 644 mg-C 30 mg-daiana 1 mg tablet magnesium 200 mg tablet 400 mg PO DAILY tablet 08/17/19 08/23/19 mecobalamin (vitamin B12) 5,000 5,000 mcg PO DAILY 08/17/19 08/23/19 mcg disintegrating tablet mexiletine 150 mg capsule 150 mg PO Q12H cap 08/17/19 08/23/19 midodrine 10 mg tablet 20 mg PO TID tablet 08/17/19 08/23/19 Allergies Allergy/AdvReac Type Severity Reaction Status Date / Time sulfamethoxazole AdvReac Severe severe Verified 08/31/19 00:21 [From Bactrim] itching trimethoprim [From Bactrim] AdvReac Severe severe Verified 08/31/19 00:21 itching lisinopril AdvReac Cough Verified 08/31/19 00:21 Review of Systems Review of Systems: All systems reviewed & are unremarkable except as noted in HPI and below Constitutional: Constitutional: Denies chills, Denies fever(s) and Denies weakness ENT: Denies nasal congestion and Denies sore throat Cardiovascular: Cardiovascular: Denies chest pain and Denies rapid heart rate Gastrointestinal: Gastrointestinal: Denies abdominal pain Comments: No hematochezia. Neurologic: Denies dizziness and Denies syncope PMFSH Social History Social History Smoking status: Never smoker Alcohol intake: never Substance use: never Substance use type: does not use Gender identity (if verbalized by the patient): Male Spiritual care concerns: No Exam Narrative: Exam Narrative: GENERAL: Chronically ill-appearing, well-nourished, and in no acute distress. HEAD: Normocephalic, atraumatic. ENT: Mucous membranes moist. CHEST: Clear to auscultation. No respiratory distress. HEART: Regular rate and rhythm. Normal peripheral pulses. ABDOMEN: Soft, nontender, nondistended. EXTREMITIES: Normal range of motion. Left leg shorter than right. NEURO: Alert and oriented x3. Course Course Emergency Course: Patient informed of results. 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 Vincent patient's metal machine setter. Hemoglobin appears stable. Recommend outpatient transfusion. Patient prefers outpatient transfusion as well. Vital Signs Vital signs: Vital Signs Temperature 97.7 F 09/27/19 12:18 Pulse Rate 83 09/27/19 12:18 Respiratory Rate 19 09/27/19 12:18 Blood Pressure 91/45 L 09/27/19 12:18 Pulse Oximetry 100 09/27/19 12:18 Temperature 97.7 F 09/27/19 12:18 Pulse Rate 83 09/27/19 12:18 Respiratory Rate 19 09/27/19 12:18 Blood Pressure 91/45 L 09/27/19 12:18 Pulse Oximetry 100 09/27/19 12:18 Medical Decision Making Vital Signs Vital Signs: Vital Signs Temperature 97.7 F 09/27/19 12:18 Pulse Rate 83 09/27/19 12:18 Respiratory Rate 19 09/27/19 12:18 Blood Pressure 91/45 L 09/27/19 12:18 Pulse Oximetry 100 09/27/19 12:18 Temperat
== END 2019-09-27 15:18 | disposition home or self-care (01) ==
PROVIDERS: Emergency Provider Emergency Medicine; PCP Family Medicine
DX: D64.9 Anemia, unspecified (principal); N18.6 End stage renal disease; Z99.2 Dependence on renal dialysis
CPT/HCPCS: 36415; 80048; 85025; 86850; 86900; 86901; 99283

== ENCOUNTER 2019-11-10 11:00 | Outpatient (RCR) | payer MEDICARE, SELFPAY ==
[2019-10-02 14:43] LABS: Hemoglobin 6.3 g/dL (14.0-18.0)
[2019-10-02 14:44] LABS: Hematocrit 20.3 % (42.0-52.0)
[2019-10-04] VITALS (9 sets, daily range): BP systolic 88–100; BP diastolic 40–53; PULSE 59–68; RESP 14–18; TEMP 36.3–36.8; O2SAT 99–100
[2019-10-04] MEDS: SODIUM CHLORIDE 0.9% IV 250 ML 30 ML IV CONT (09:45)
[2019-11-10] VITALS (10 sets, daily range): BP systolic 88–106; BP diastolic 46–65; PULSE 59–74; RESP 14–20; TEMP 36.5–37.1; O2SAT 98–100
[2019-11-10 11:59] LABS: Hematocrit 21.5 % (42.0-52.0)
[2019-11-10 12:01] LABS: Hemoglobin 6.5 g/dL (14.0-18.0)
[2019-11-10] MEDS: SODIUM CHLORIDE 0.9% IV 250 ML 30 ML IV CONT (14:35)
== END 2019-12-31 23:59 | disposition home or self-care (01) ==
LOC: ANHCPCTRAN 11:00
PROVIDERS: PCP Family Medicine; Referring Provider Family Medicine; Visit Provider Internal Medicine Nephrology
DX: N18.6 End stage renal disease (principal); D63.1 Anemia in chronic kidney disease
CPT/HCPCS: 36415; 36430; 85014; 85018; 86850; 86900; 86901; 86923; J7050; P9016

== ENCOUNTER 2020-07-04 17:11 | Inpatient (IN) | payer MEDICARE, SELFPAY ==
[2020-07-04] VITALS (53 sets, daily range): BP systolic 65–107; BP diastolic 14–55; PULSE 60–96; RESP 17–30; TEMP 37.9–39; O2SAT 84–100
--- NOTE | ~2020-07-04 | XR_ITS ---
XR knee RT 2V 07/04/2020 18:21 Indication: Right knee pain Procedure: 3 views right knee Comparison: No prior studies for comparison. Findings: There is right total knee arthroplasty. There is side plate and screws transfixing the dist al aspect of the right femur. Knee prosthesis well seated. There are nondisplaced the fracture lines of the distal femoral diaphysis extending into the metaphysis, age indeterminate. Impression: 1: Age-indeterminate fracture distal aspect of the femur transfixed by side plate and screws. There i s near-anatomic alignment. Correlate clinically for recent history of fracture and surgical fixation. Reviewed, dictated and finalized at location A. Impression: 1: Age-indeterminate fracture distal aspect of the femur transfixed by side stormy te and screws. There is near-anatomic alignment. Correlate clinically for recen t history of fracture and surgical fixation.
--- NOTE | ~2020-07-04 | XR_ITS ---
XR chest port-a-cath/central 07/04/2020 20:47 Indication: Central line placement Procedure: AP portable chest Comparison: Comparison to multiple prior studies sequentially, with oldest reviewed study dated 07/04. Findings: Interval placement of right subclavian central line, tip in the SVC. Endotracheal tube tip approximately 3 cm above the lonnie. NG tube above the diaphragm, near the expected location of GE ju nction. Pacemaker leads stable. Moderate cardiomegaly with mild interstitial edema. No pneumothorax. Impression: 1: Moderate cardiomegaly with mild interstitial edema. Reviewed, dictated and finalized at location A. Impression: 1: Moderate cardiomegaly with mild interstitial edema.
--- NOTE | ~2020-07-04 | CT_ITS ---
EXAMINATION: CTA chest PE abdomen pel DATE: 07/04/2020 21:57 CDT INDICATION: Shortness of breath. Ascites. TECHNIQUE: Computed tomographic angiography (CTA) of the chest, abdomen and pelvis was performed with 100 mL Omnipaque-350 intravenous contrast. The dose-length product was 1915.81 mGy-cm. Maximum inten sity projection 3D-reconstructions of the aorta and other arteries were constructed by the [employer]SEMCO Engineeringi st on a separate workstation. COMPARISON: None. FINDINGS: Chest: Study is technically limited due to motion artifact and streak artifact. No central pulmonary embolism is identified. There is an endotracheal tube present. There is probable fluid in the esophag us. There is subcarinal and right hilar lymphadenopathy. Global enlargement of the heart. There is pa tchy bilateral airspace consolidation with areas of mosaic attenuation, consistent with pneumonia. rspace disease most confluent in the right upper and lower lobe. Abdomen/pelvis: There is ascites. Fatty infiltration of the liver. The spleen, pancreas, adrenal glands and kidneys a re unremarkable. Gallbladder is contracted. Mild thickening of the proximal sigmoid colon with coloni c diverticula. No free air is identified. Nonobstructive bowel gas pattern. Generalized osteopenia. S evere lumbar spondylosis. Status post median sternotomy for CABG. Pacemaker leads are present. IMPRESSION: 1. No large central pulmonary embolism. Evaluation of peripheral pulmonary arteries limited by motion . 2: Patchy bilateral airspace consolidation, consistent with pneumonia. 3: Mediastinal and right hilar lymphadenopathy, nonspecific. 4: Severe cardiomegaly. 5: Large amount of ascites. 6: Mild thickening of the proximal sigmoid colon with colonic diverticula. Considerations include in fectious/inflammatory colitis and sequela of chronic diverticulitis. Reviewed, dictated and finalized at location A. IMPRESSION: 1. No large central pulmonary embolism. Evaluation of peripheral pulmonary ale jimmy limited by motion. 2: Patchy bilateral airspace consolidation, consistent with pneumonia. 3: Mediastinal and right hilar lymphadenopathy, nonspecific. 4: Severe cardiomegaly. 5: Large amount of ascites. 6: Mild thickening of the proximal sigmoid colon with colonic diverticula. Con siderations include infectious/inflammatory colitis and sequela of chronic dive rticulitis.
--- NOTE | ~2020-07-04 | XR_ITS ---
XR chest ET placement 07/04/2020 20:31 Indication: Shortness of breath. Ascites. Procedure: AP view of the chest Comparison: 07/04/2020 Findings: Interval placement of endotracheal tube, 2.5 cm above the lonnie. Moderate cardiomegaly. Im proved interstitial edema. No pneumothorax. Status post median sternotomy for CABG. Impression: 1: Cardiomegaly with improved interstitial edema. Reviewed, dictated and finalized at location A. Impression: 1: Cardiomegaly with improved interstitial edema.
--- NOTE | ~2020-07-04 | XR_ITS ---
XR chest 1V portable 07/04/2020 17:41 Indication: Fever. Covid positive. Procedure: AP portable chest Comparison: 08/23/2019 Findings: Status post median sternotomy for CABG. Moderate cardiomegaly with interstitial edema. No s ignificant effusion or pneumothorax. Pacemaker leads stable. Impression: 1: Cardiomegaly with interstitial edema. Superimposed pneumonia not excluded. Reviewed, dictated and finalized at location A. Impression: 1: Cardiomegaly with interstitial edema. Superimposed pneumonia not excluded.
--- NOTE | ~2020-07-04 | CT_ITS ---
EXAMINATION: CT brain wo con DATE: 07/04/2020 21:48 INDICATION: Altered mental status TECHNIQUE: Computed tomography (CT) of the head was performed without intravenous contrast. The dose- length product was 605.33 mGy-cm. The mA was adjusted according to patient size. Iterative reconstruc tion technique was employed. COMPARISON: None FINDINGS: No acute intracranial hemorrhage, infarction, mass or mass effect. Mild generalized atrophy . There are scattered mild periventricular and subcortical white matter changes, most likely related to small vessel ischemic disease (microangiopathy). Mild mucosal thickening of the right maxillary si nus. Mastoids are pneumatized. No depressed skull fractures. Study limited by motion artifact. IMPRESSION: 1. No acute intracranial abnormality. 2: Chronic age-related findings. Reviewed, dictated and finalized at location A.
--- NOTE | ~2020-07-04 | XR_ITS ---
XR abdomen NG/feed tube rechec DATE: 07/05/2020 08:13 INDICATION: NG tube repositioning TECHNIQUE: Portable supine AP view on 07/05/2020 at 0812 hours COMPARISON: 07/04/2020 portable AP view FINDINGS: A nasogastric tube is identified, distal tip situated in the region of the diaphragmatic hi atus, the proximal port in the lower chest. IMPRESSION: NG tube tip near diaphragmatic hiatus, proximal port in the lower chest Reviewed, dictated and finalized at Location A. Reviewed, dictated and finalized at location A. IMPRESSION: NG tube tip near diaphragmatic hiatus, proximal port in the lower c hest
--- NOTE | ~2020-07-04 | XR_ITS ---
XR abdomen NG/feed tube rechec INDICATION: Evaluate G-tube position. TECHNIQUE: Limited KUB perform for evaluating NG tube . COMPARISON: 07/04/2020 FINDINGS: NG tube tip in the lower chest near the expected location of the GE junction. Visualized b owel gas pattern is nonspecific.Cardiomegaly. Status post median sternotomy. Pacemaker/AICD lead tip in the right ventricle. IMPRESSION: 1: NG tube tip in the lower chest near the expected location of the GE junction. The overall positio n is unchanged. Recommend advancement.. Reviewed, dictated and finalized at location A. IMPRESSION: 1: NG tube tip in the lower chest near the expected location of the GE junctio n. The overall position is unchanged. Recommend advancement..
--- NOTE | ~2020-07-04 | XR_ITS ---
XR abdomen NG/feed tube insert INDICATION: Evaluate NG tube position. TECHNIQUE: Limited KUB perform for evaluating NG tube . COMPARISON: No prior studies for comparison. FINDINGS: NG tube tip near the expected location of the GE junction. Recommend advancement. Visualize d bowel gas pattern is unremarkable.Cardiomegaly. IMPRESSION: 1: NG tube tip near the expected location of the GE junction. Advancement recommended. Reviewed, dictated and finalized at location A. IMPRESSION: 1: NG tube tip near the expected location of the GE junction. Advancement ashok mmended.
--- NOTE | ~2020-07-04 | XR_ITS ---
EXAMINATION: XR abdomen NG/feed tube insert DATE: 07/05/2020 09:52 INDICATION: Nasogastric tube placement. TECHNIQUE: A semiupright view of the abdomen was obtained. COMPARISON: Abdomen radiograph at 8:04 AM FINDINGS: The lower abdomen is excluded. The nasogastric tube tip is in the stomach. The endotracheal tube tip is 2.3 cm above the lonnie. There is a right-sided central venous catheter with tip in the superior vena cava. There is a left chest pacer/defibrillator with leads in right ventricle and coron juan manuel sinus. Cardiomegaly is noted. IMPRESSION: 1. Nasogastric tube tip in the stomach. Reviewed, dictated and finalized at location B.
--- NOTE | ~2020-07-04 | XR_ITS ---
XR chest 1V portable DATE: 07/05/2020 08:13 INDICATION: Cardiac arrest. Acute respiratory failure. TECHNIQUE: Portable AP chest on 07/05/2020 at 0804 hours COMPARISON: 07/04/2020 CTA chest portable AP chest FINDINGS: There is prominent cardiomegaly. There is aortic arch calcification. There are prominent bilateral pulmonary infiltrates which are more prominent in the central and lower lung zones, increased since 07/04/2020, suggesting pulmonary edema. Pneumonia is not excluded. Left-sided AICD/pacemaker device with lead overlying right ventricular apex. ET tube in satisfactory position approximately 2.3 cm above lonnie. NG tube in stomach. Prominent diffuse osteopenia. IMPRESSION: Increased bilateral pulmonary infiltrates since 07/04/2020, likely due to pulmonary edema. Pneumonia is not excluded. Reviewed, dictated and finalized at location A. IMPRESSION: Increased bilateral pulmonary infiltrates since 07/04/2020, likely d ue to pulmonary edema. Pneumonia is not excluded.
--- NOTE | 2020-07-04 17:10 | ECG_ITS ---
Measurements Intervals [place] Rate: 72 P: CO: 0 QRS: 258 QRSD: 211 T: 55 QT: 433 QTc: 475 Interpretive Statements ELECTRONIC VENTRICULAR PACEMAKER BASELINE ARTIFACT- I, II, III, AVR, AVL NO FURTHER INTERPRETATION IS POSSIBLE ATYPICAL ECG Electronically Signed On 07-04-2020 18:46:06 CDT by Dwayne Knight D.O.
[2020-07-04 17:33] LABS: Basophils Percent Auto 0.2 % (0.2-1.2); Hematocrit 30.2 % (42.0-52.0); Hemoglobin 9.5 g/dL (14.0-18.0); Immature Granulocyte Absolute 0.07 K/mm3 (0.00-0.031); Immature Granulocyte Percent A 0.6 % (0-0.5); Lymphocytes Percent Auto 2.5 % (18.3-44.2); Mean Corpuscular HGB Conc 31.5 g/dl (32-36); Mean Corpuscular Hemoglobin 26.8 pg (26-34); Mean Corpuscular Volume 85.3 fl (80-100); Mean Platelet Volume 12.1 fl (7.4-10.4); Monocytes Absolute Auto 0.7 K/mm3 (0.1-0.6); Monocytes Percent Auto 6.1 % (2.6-8.5); Neutrophils Absolute Auto 10.9 K/mm3 (1.3-6.7); Neutrophils Percent Auto 90.6 % (45.5-73.1); Platelet Count Result 121 k/mm3 (150-375); Red Blood Count 3.54 M/mm3 (4.6-6.20); Red Cell Distribution Width 19.8 % (11.5-14.5)
[2020-07-04 17:46] LABS: Lactic Acid Reflex 2.5 mmol/L (0.7-2.1)
[2020-07-04 17:47] LABS: Alanine Aminotransferase 10 U/L (4-50); Albumin Level 3.8 g/dL (3.5-5.1); Alkaline Phosphatase 137 U/L (38-126); Anion Gap 13 mmol/L (8-16); Aspartate Amino Transferase 45 U/L (17-59); Bilirubin,Total 1.4 mg/dL (0.2-1.3); Blood Urea Nitrogen 39 mg/dL (9-20); Calcium 8.9 mg/dL (8.4-10.2); Carbon Dioxide 31 mmol/L (22-30); Chloride 88 mmol/L (98-107); Estimated CRCL calculation 17 ml/min; Estimated Glomerular Filt Rate 16; Glucose 69 mg/dL (75-110); Potassium 4.9 mmol/L (3.4-5.0); Sodium 132 mmol/L (137-145)
--- NOTE | 2020-07-04 17:47 | ED.GENADULT ---
HPI - General Adult General Chief complaint: Fever Stated complaint: covid/increased lethargy Source: patient and family History of Present Illness HPI narrative: Patient is a 70 y/o male brought in by EMS for lethargy. states that patient has not been eating and he has being acting lethargic. She also noticed that he was having chills. His symptoms are severe. There is no known alleviating or exacerbating factor. He had recent surgery for periprosthetic femur fracture at [facility] last month. He has some right knee pain, but states that his pain is at baseline. states that he tested positive for COIVID on 05/19 and 05/29, but subsequent COVID tests at [facility] were all negative. Patient is confused and unable to provide additional history. Related Data Home Medications Medication Instructions Recorded Confirmed amiodarone 200 mg tablet 200 mg PO DAILY 08/17/19 07/05/20 ascorbic acid (vitamin C) 1,000 mg 1 gm PO DAILY 08/17/19 07/05/20 tablet atorvastatin 20 mg tablet 20 mg PO DAILY 08/17/19 07/05/20 cholecalciferol (vitamin D3) 125 125 mcg PO DAILY 08/17/19 07/05/20 mcg (5,000 unit) capsule glucosamine 750 [id number] 2 tablet PO DAILY tablet 08/17/19 07/05/20 no1 644 mg-C 30 mg-daiana 1 mg tablet magnesium 200 mg tablet 400 mg PO DAILY tablet 08/17/19 07/05/20 mecobalamin (vitamin B12) 5,000 5,000 mcg PO DAILY 08/17/19 07/05/20 mcg disintegrating tablet mexiletine 150 mg capsule 150 mg PO Q12H cap 08/17/19 07/05/20 midodrine 12.5 mg PO TID 07/05/20 07/05/20 Allergies Allergy/AdvReac Type Severity Reaction Status Date / Time sulfamethoxazole AdvReac Severe severe Verified 07/04/20 17:27 [From Bactrim] itching trimethoprim [From Bactrim] AdvReac Severe severe Verified 07/04/20 17:27 itching lisinopril AdvReac Cough Verified 07/04/20 17:27 Review of Systems Constitutional: Constitutional: Reports chills, Denies fever(s), Denies headache(s) and Denies weakness Eyes: Eyes: Denies blurry vision ENT: Denies headache(s) and Denies neck pain Cardiovascular: Cardiovascular: Denies chest pain and Denies dyspnea Respiratory: Respiratory: Denies cough and Denies dyspnea Gastrointestinal: Gastrointestinal: Denies abdominal pain, Denies diarrhea, Denies nausea and Denies vomiting Genitourinary: Genitourinary: Denies hematuria and Denies dysuria Musculoskeletal: Musculoskeletal: Denies back pain, Reports arthralgias (right knee pain) and Denies neck pain Neurologic: Denies headache(s) and Denies weakness [facility] Past Medical History Medical History Acute on chronic anemia Afib Charcot foot due to diabetes mellitus CHF (congestive heart failure) Chronic diarrhea Colon polyp Diabetes mellitus Dialysis patient ESRD (end stage renal disease) GIB (gastrointestinal bleeding) Hepatopathy Hypothyroidism Surgical History Surgical History History of bilateral knee replacement History of cardiac radiofrequency ablation (RFA) History of mitral valve repair History of tricuspid valve repair S/P implantation of automatic cardioverter/defibrillator (AICD) Family History Family History Mother Hypertension Social History Social History Smoking status: Never smoker Alcohol intake: former Substance use: former Substance use type: does not use Gender identity (if verbalized by the patient): Male Sexual Orientation (if Verbalized by the Patient): Straight or Heterosexual Spiritual care concerns: No Exam Const: General: no acute distress and well developed Orientation/consciousness: oriented to person, oriented to place and confusion HENMT: Head: normocephalic Ears: external ears normal General nose exam: Normal external nose present Eyes: General: appearance mara
[2020-07-04] MEDS: ACETAMINOPHEN 325 MG TABLET 650 MG PO (17:56)
--- NOTE | 2020-07-04 19:58 | PC.NURSE ---
EDLeilani Dunhamo in room for paracentesis. Prior to procedure, patient became unresponsive and have agonal respirations. Patient then began to be bagged with BVM. Pulse was lost and code blue was called overhead. Refer to code sheet.
--- NOTE | 2020-07-04 20:04 | PC.NURSE ---
Patient intubated at this time. 7.5 ETT 24 at the teeth Good end tidal color change Bilateral chest rise and fall present Breath sounds present
--- NOTE | 2020-07-04 20:12 | PC.NURSE ---
Per EDP Mani via verbal order read-back, give rest of 1,500 mL bolus at this time. Patient receiving full 2500mL fluid bolus.
[2020-07-04 20:30] LABS: INR 1.6; Prothrombin Time 19.8 Seconds (11.1-14.7)
[2020-07-04 20:31] LABS: Reflex Lactic Acid Yes or No Add Lactic
[2020-07-04 20:31] LABS: Partial Thromboplastin Time 45.3 SECONDS (22.3-36.8)
[2020-07-04 20:33] LABS: CRP 7.6 mg/dL (<1.0)
[2020-07-04 20:41] LABS: Erythrocyte Sedimentation Rate 69 mm/hr (0-20)
[2020-07-04 20:54] LABS: Alveolar/Arterial O2 Gradient 628.4 mmHg; Base Excess ABG -3.6 mEq/l (+/-2.0); Fractional Inspired Oxygen 100 %; HCO3 ABG 20.4 mEq/l (22.0-26.0); Oxygen Content ABG 11.1 %vol (16.0-22.0); Oxygen Saturation ABG 87.7 % (95.0-100.0); Oxyhemoglobin 83.9 % THb (90.0-100.0); PCO2 ABG 32.6 mmHg (35.0-45.0); PO2 FiO2 Ratio Arterial Blood 0.52 %; Total Hemoglobin 9.4 g/dL (12.0-18.0); pH ABG 7.414 (7.350-7.450)
[2020-07-04] MEDS: NOREPINEPHRINE 8 MG/D5W 250 ML 8 MG/250 ML BAG 9.38 MG IV CONT (20:54)
[2020-07-04 20:55] LABS: Device VENTILATOR; Modified Allen's Test Pass; Site Drawn LEFT RADIAL
[2020-07-04 20:56] LABS: Arterial Blood Gas PEEP 5 cmH2O; Arterial Blood Gas Tidal Volume 450 ml; Arterial Blood Gas Vent Mode CMV; Arterial Blood Gas Ventilator rate 20 /MIN
[2020-07-04 21:36] LABS: Ammonia 70 umol/L (9-30)
[2020-07-04 21:44] LABS: Source Peritoneal Fluid Peritoneal Fluid
[2020-07-04 21:46] LABS: Appearance Peritoneal Fluid Clear (Clear); Color Peritoneal Fluid Yellow (Colorless); Lymphocytes Peritoneal Fluid 26 %; Macrophages Peritoneal Fluid 62 %; Mesothelial Cells Peritoneal Fluid 3 %; Neutrophils Peritoneal Fluid 9 % (0-25); Nucleated Cells Peritoneal Flu 247 /uL (0-500); RBC Peritoneal Fluid 103 /uL (0-100000)
[2020-07-04 21:55] LABS: Lactic Acid 8.9 mmol/L (0.7-2.1)
[2020-07-04 21:56] LABS: Appearance Synovial Fluid Cloudy (Clear); Color Synovial Fluid Red (Colorless); Nucleated Cell Synovial Fluid 108 /uL (0-200); Source Synovial Fluid Synovial fluid
[2020-07-04 21:57] LABS: Lymphocytes Synovial Fluid 24 %; Macrophages Synovial Fluid 37 %; Monocytes Synovial Fluid 7 %; Neutrophils Synovial Fluid 30 % (0-25); Other Cells Synovial Fluid 2 %; RBC Synovial Fluid 26493 /uL (0-0)
--- NOTE | 2020-07-04 21:58 | PC.NURSE ---
Per EDP Mani, increase Levophed to 45mcg/min.
[2020-07-04 22:17] LABS: Troponin I 0.101 ng/mL (0.000-0.034)
[2020-07-04] MEDS: VASOPRESSIN INJ 100 UNITS in DEXTROSE 5% 95 ML IV CONT (22:20)
--- NOTE | 2020-07-04 22:39 | PC.NURSE ---
Patient has been accepted at [facility] per [facility] transfer line, however, no beds available at this time.
--- NOTE | 2020-07-04 23:36 | ECG_ITS ---
Measurements Intervals [place] Rate: 80 P: -53 DC: 239 QRS: 267 QRSD: 241 T: 0 QT: 425 QTc: 491 Interpretive Statements ELECTRONIC VENTRICULAR PACEMAKER BASELINE ARTIFACT- V3-V6 NO FURTHER INTERPRETATION IS POSSIBLE ATYPICAL ECG Electronically Signed On 07-05-2020 7:15:18 CDT by Dwayne Knight D.O.
[2020-07-05] VITALS (26 sets, daily range): BP systolic 80–105; BP diastolic 36–54; PULSE 60–65; RESP 20–25; TEMP 35.7–37.9; O2SAT 94–100; BMI 24.0; BMI 25.0
[2020-07-05] MEDS: CENTRAL LINE FLUSH 10 ML IV PUSH ×2 (00:30→06:17)
[2020-07-05] MEDS: NOREPINEPHRINE 8 MG/D5W 250 ML 8 MG/250 ML BAG 56.25 MG IV CONT ×4 (00:41→09:41)
--- NOTE | 2020-07-05 00:47 | P.PCNBED_ITS ---
Procedures Arterial Line Arterial Line Date: 07/05/20 Arterial Line Time: 00:47 Perfomed Emergently - Given emergent patient conditions, temporal constraints may have precluded informed consent: Yes Time Out Performed: Yes Patient Position: supine Shipping Support Prep: sterile gown, sterile gloves, mask and hat Site: right and femoral Site Prep: chlorhexidine and sterile drape Technique used: guide wire technique Size (Gauge): 16 Length: 12 cm Closure/Dressing: suture, transparent dressing and securement product Patient tolerated procedure: well and no complications Complications: none Additional comments: Date of service was 07/05/2020 at 00:10 hrs
--- NOTE | 2020-07-05 01:00 | PM.IMHP ---
H&P: HPI History of Present Illness Date/Time: 07/05/20 01:00 Chief Complaint: Lethargy at home+ Narrative: This is a 69 year old male with known ESRD on hemodialysis M/W/F, CHF, and atrial fibrillation well known to our hospitalist group from a previous admission for acute blood loss anemia and who was brought to the hospital yesterday secondary to being lethargic. The patient's had reported to EMS into the ER provider that the patient was not acting like himself and not eating any food. The patient apparently had a recent surgery at [facility] for a periprosthetic femur fracture last month. The patient was initially complaining of right knee pain while in the emergency room. The patient was placed on oxygen while the emergency room as his oxygen sats dropped to 88%. At approximately 19:58 hrs the patient was found to be pulseless and unresponsive. CODE BLUE was called overhead and CPR was initiated. The patient was given 2 rounds of Epinephrine IVP and one amp of sodium bicarbonate. ROSC was achieved at 8:05 pm. The patient was intubated during the resuscitation. ER provider initiated transfer to [facility] as the patient was recently treated there for his fracture and was accepted but placed on a waiting list as there were no beds available. The patient was treated with a 30cc/kg IV fluid bolus and a right subclavian central line was placed. He was started on vasopressors as his blood pressure was severely low. ER provider performed arthrocentesis of right knee and paracentesis. He was started on wide spectrum IV antibiotics. Curriculum And Instruction Specialist, Dr. Amador has been consulted. CT scans were obtained of head/chest/abdomen/pelvis which demonstrated Patchy bilateral airspace consolidation and possible colitis otherwise unremarkable. We have been asked to admit the patient to the hospital for further care. No further history is obtainable from the patient in his current condition. Review of Systems Review of Systems: All systems reviewed & are unremarkable except as noted in HPI and below PMFSH Past Medical History Medical History Acute on chronic anemia Afib Charcot foot due to diabetes mellitus CHF (congestive heart failure) Chronic diarrhea Colon polyp Diabetes mellitus Dialysis patient ESRD (end stage renal disease) GIB (gastrointestinal bleeding) Hepatopathy Hypothyroidism Surgical History Surgical History History of bilateral knee replacement History of cardiac radiofrequency ablation (RFA) History of mitral valve repair History of tricuspid valve repair S/P implantation of automatic cardioverter/defibrillator (AICD) Family History Family History Mother Hypertension Social History Social History Smoking status: Never smoker Alcohol intake: former Substance use: former Substance use type: does not use Gender identity (if verbalized by the patient): Male Sexual Orientation (if Verbalized by the Patient): Straight or Heterosexual Spiritual care concerns: No Meds Home Medications and Allergies Home Medications Medication Instructions Recorded Confirmed Type amiodarone 200 mg tablet 200 mg PO DAILY 08/17/19 07/05/20 History ascorbic acid (vitamin C) 1,000 mg 1 gm PO DAILY 08/17/19 07/05/20 History tablet atorvastatin 20 mg tablet 20 mg PO DAILY 08/17/19 07/05/20 History cholecalciferol (vitamin D3) 125 125 mcg PO DAILY 08/17/19 07/05/20 History mcg (5,000 unit) capsule glucosamine 750 [id number]-hxn 2 tablet PO DAILY tablet 08/17/19 07/05/20 History no1 644 mg-C 30 mg-daiana 1 mg tablet magnesium 200 mg tablet 400 mg PO DAILY tablet 08/17/19 07/05/20 History mecobalamin (vitamin B12) 5,000 5,000 mcg PO DAILY 08/17/19 07/05/20 History mcg disintegrating tabl
[2020-07-05 01:01] LABS: Alveolar/Arterial O2 Gradient 582.5 mmHg; Base Excess ABG -8.5 mEq/l (+/-2.0); Device VENTILATOR; Fractional Inspired Oxygen 100 %; HCO3 ABG 14.2 mEq/l (22.0-26.0); Oxygen Content ABG 14.4 %vol (16.0-22.0); Oxygen Saturation ABG 98.2 % (95.0-100.0); Oxyhemoglobin 97.1 % THb (90.0-100.0); PO2 ABG 108.5 mmHg (80.0-100.0); PO2 FiO2 Ratio Arterial Blood 1.09 %; Site Drawn ARTLINE; Total Hemoglobin 10.4 g/dL (12.0-18.0); pH ABG 7.428 (7.350-7.450)
[2020-07-05 01:02] LABS: Arterial Blood Gas PEEP 5 cmH2O; Arterial Blood Gas Tidal Volume 450 ml; Arterial Blood Gas Vent Mode CMV; Arterial Blood Gas Ventilator rate 20 /MIN
[2020-07-05] MEDS: HYDROCORTISONE SODIUM SUCCINATE 100 MG/2 ML VIAL IV PUSH ×2 (01:10→06:16)
[2020-07-05] MEDS: SODIUM CHLORIDE 0.9% IV 500 ML 999 ML IV CONT (01:45)
[2020-07-05] MEDS: SODIUM BICARBONATE 8.4% 150 MEQ in DEXTROSE 5% 1,000 ML 950 ML 100 MEQ IV CONT (02:00)
[2020-07-05 02:10] LABS: Hematocrit 31.8 % (42.0-52.0); Hemoglobin 9.5 g/dL (14.0-18.0); Immature Platelet Fraction Pct 18.8 % (0.9-11.2); Mean Corpuscular HGB Conc 29.9 g/dl (32-36); Mean Corpuscular Hemoglobin 26.4 pg (26-34); Mean Corpuscular Volume 88.3 fl (80-100); Mean Platelet Volume 12.3 fl (7.4-10.4); Platelet Count Result 133 k/mm3 (150-375); White Blood Count 18.7 K/mm3 (4.5-10.0)
[2020-07-05 02:21] LABS: Phosphorus 4.3 mg/dL (2.5-4.5)
[2020-07-05 02:47] LABS: Troponin I 0.682 ng/mL (0.000-0.034)
[2020-07-05 02:49] LABS: Anion Gap 28 mmol/L (8-16); Blood Urea Nitrogen 34 mg/dL (9-20); Carbon Dioxide 12 mmol/L (22-30); Chloride 90 mmol/L (98-107); Estimated CRCL calculation 16 ml/min; Estimated Glomerular Filt Rate 14; Glucose < 20 mg/dL (75-110); Potassium 4.9 mmol/L (3.4-5.0); Sodium 130 mmol/L (137-145)
[2020-07-05] MEDS: DEXTROSE 50% 25 GM/50 ML SYRINGE IV PUSH ×4 (02:54→06:50)
[2020-07-05 02:55] LABS: Lactic Acid Reflex 12.9 mmol/L (0.7-2.1)
[2020-07-05] MEDS: DEXTROSE 5%/0.9% SOD CHL 1,000 ML 50 ML IV CONT (03:14)
[2020-07-05 03:22] LABS: Glucose Point of Care 78 (65-105)
[2020-07-05 03:22] LABS: Glucose Point of Care < 20 (65-105)
[2020-07-05 04:17] LABS: Glucose Point of Care 64 (65-105)
[2020-07-05 04:39] LABS: Glucose Point of Care 92 (65-105)
[2020-07-05 05:47] LABS: Glucose Point of Care 99 (65-105)
[2020-07-05 05:58] LABS: Alveolar/Arterial O2 Gradient 262.9 mmHg; Base Excess ABG -18.6 mEq/l (+/-2.0); Carboxyhemoglobin 0.3 % THb (0-2.0); Fractional Inspired Oxygen 50 %; HCO3 ABG 7.2 mEq/l (22.0-26.0); Methemoglobin ABG 0.1 %THb (0-1.5); Oxygen Content ABG 13.2 %vol (16.0-22.0); Oxygen Saturation ABG 92.2 % (95.0-100.0); Oxyhemoglobin 89.9 % THb (90.0-100.0); PO2 ABG 73.2 mmHg (80.0-100.0); PO2 FiO2 Ratio Arterial Blood 1.46 %; Reduced Hemoglobin 9.7 %THb (0-5.0); Total Hemoglobin 10.4 g/dL (12.0-18.0)
[2020-07-05 05:59] LABS: Device VENTILATOR; PCO2 ABG 18.1 mmHg (35.0-45.0); Site Drawn ARTLINE; pH ABG 7.216 (7.350-7.450)
[2020-07-05 06:00] LABS: Arterial Blood Gas Ventilator rate 20 /MIN
[2020-07-05 06:01] LABS: Arterial Blood Gas PEEP 5 cmH2O; Arterial Blood Gas Tidal Volume 450 ml; Arterial Blood Gas Vent Mode CMV
[2020-07-05] MEDS: LEVOTHYROXINE SODIUM INJ 100 MCG/5 ML VIAL 75 MCG IV PUSH (06:17)
[2020-07-05 06:19] LABS: Basophils Percent Auto 0.2 % (0.2-1.2); Hemoglobin 9.9 g/dL (14.0-18.0); Immature Granulocyte Absolute 0.29 K/mm3 (0.00-0.031); Immature Granulocyte Percent A 1.1 % (0-0.5); Immature Platelet Fraction Pct 20.2 % (0.9-11.2); Lymphocytes Absolute Auto 0.55 K/mm3 (0.9-3.2); Lymphocytes Percent Auto 2.2 % (18.3-44.2); Mean Corpuscular HGB Conc 29.1 g/dl (32-36); Mean Corpuscular Hemoglobin 26.7 pg (26-34); Mean Corpuscular Volume 91.6 fl (80-100); Mean Platelet Volume 12.8 fl (7.4-10.4); Monocytes Percent Auto 3.8 % (2.6-8.5); Neutrophils Absolute Auto 23.4 K/mm3 (1.3-6.7); Neutrophils Percent Auto 92.7 % (45.5-73.1); Nucleated Red Blood Cells Perc 0.2 % (0.0-0.2); Platelet Count Result 145 k/mm3 (150-375); Red Blood Count 3.71 M/mm3 (4.6-6.20); Red Cell Distribution Width 20.3 % (11.5-14.5); White Blood Count 25.3 K/mm3 (4.5-10.0)
[2020-07-05 06:34] LABS: Blood Urea Nitrogen 33 mg/dL (9-20); Calcium 8.1 mg/dL (8.4-10.2); Carbon Dioxide < 5 mmol/L (22-30); Chloride 89 mmol/L (98-107); Estimated CRCL calculation 15 ml/min; Estimated Glomerular Filt Rate 14; Glucose 68 mg/dL (75-110); Sodium 128 mmol/L (137-145)
--- NOTE | 2020-07-05 06:45 | PC.NURSE ---
0300 urinary cath insertion attempted by Dain Burgos RN without success. Met with obstruction and unable to advance catheter. Dr. Harding aware. Unable to collect sputum, no sputum suctioned. RT notified.
[2020-07-05 07:07] LABS: Glucose Point of Care 121 (65-105)
[2020-07-05] MEDS: SODIUM BICARBONATE 8.4% 50 MEQ/50 ML SYRINGE 100 MEQ IV PUSH (08:44)
--- NOTE | 2020-07-05 08:49 | PM.CNCAR ---
Assessment and Plan Additional Plan 70-year-old man with: Significant dilated cardiomyopathy history of mitral valve repair about 5-6 years ago still has significant MR by physical exam also has a chronically implanted biventricular pacemaker/ICD. He was in the emergency room last evening and obviously was markedly hypotensive is he had no palpable pulse and was resuscitated with CPR and epinephrine. He unlikely had a primary electrical event as there is no statement of this on the chart and his ICD did not fire in the emergency room. He is currently intubated and on aggressive vasopressor support in the ICU. Prognosis is extremely poor which seems obvious. Request to transfer him back to his to tertiary care center for further support is appropriate and at those efforts are underway. Given his very poor overall condition the family has appropriately chosen DNR status and I do not believe there are any other specific cardiac recommendations to make at this point Rafita Olmos MD [facility] History of Present Illness History of Present Illness Consult date/time: 07/05/20 08:49 Reason For Visit: cardiopulmonary arrest, septic shock Narrative: This is a 70-year-old man that I am seeing this morning at the request of the hospitalist because of a episode of unresponsiveness with loss of pulse in the emergency room yesterday evening. The patient is unknown to me prior to this encounter but apparently has a lengthy history of heart disease. He was in the emergency room with symptoms of generalized weakness poor p.o. intake and lethargy. While he was being evaluated apparently he became unresponsive did not have a palpable pulse received CPR for 6 or 7 minutes and received epinephrine and eventually retained spontaneous circulation. During this event he was of course intubated and then transferred to the ICU. There is no statement in the notes in the chart about what the cardiac rhythm was at this time. The EKGs and rhythm strips on the chart demonstrate and electronically paced rhythm and no arrhythmias that suggest of ventricular arrhythmias of any sort. He is a gentleman which according to the chart has a history of significant systolic left ventricular dysfunction a history of previous mitral valve repair at [facility] about 5 or 6 years ago a history of implantation of a biventricular pacemaker/ICD. He is the patient of Dr. Meyer at [facility]. Recent notes from his office follow-up are in the chart. His medical regimen and a baseline consist of amiodarone as well as midodrine for use prior to dialysis. He is not receiving a beta-josefina or a vaso dilator as an outpatient. Apparently he was hospitalized at [facility] recently because he had a fall and had a femoral fracture above a previously placed knee prosthesis. Surgical repair of this was carried out at [facility]. He is currently in the ICU on a mechanical ventilator support. Once again all the electrocardiograms on the chart demonstrate an electronically paced rhythm with a heart rate of 60 which is presumably the lower rate limit of his pacemaker device. The patient also has chronic renal failure and according to the son has been a dialysis patient for about a year. He normally gets dialyzed at [facility] in [place]. The physicians at [facility] were contacted in the from the emergency room last evening requesting to transfer him over there for further care and support. They did not have a bed that was suitable for him last night so he was kept in our ICU overnight. Requests are still being made to transfer him to [facility] for renal replacement therapy. Review of Systems Review of Systems: ROS unobtainable: Yes unobtainable due to endotracheal tube and unobtainable due to medical condition PMFSH Past Medical History Medical History Acute on chronic anemia Afib Charcot foot due to diabetes mellitus CHF (congestive heart failure) Chronic diar
--- NOTE | 2020-07-05 09:05 | WPDCNINT ---
Assessment and Plan Assessment and plan (1) Cardiac arrest: Code(s): I46.9 - Cardiac arrest, cause unspecified Status: Acute Assessment and Plan: Cardiac arrest most likely related to respiratory issues and or metabolic derangement -ROSC within 7 minutes -appreciate cardiology evaluation recommendation -patient has a history of cardiomyopathy with AICD. -prognosis is poor (2) Acute respiratory failure: Qualifiers: Respiratory failure complication: unspecified whether with hypoxia or hypercapnia Qualified Code(s): J96.00 - Acute respiratory failure, unspecified whether with hypoxia or hypercapnia Code(s): J96.00 - Acute respiratory failure, unspecified whether with hypoxia or hypercapnia Status: Acute Assessment and Plan: Acute respiratory failure likely related to cardiac arrest, intubated on 07/04/2020 -remains on CMV mode of ventilation, peep of 5, 50% FiO2 -patient with severe metabolic acidosis, adjustments were made to the ventilator for adequate ventilation -ABGs and chest x-ray reviewed, -continue Zosyn, will add vancomycin -not on any sedation (3) Septic shock: Code(s): A41.9 - Sepsis, unspecified organism; R65.21 - Severe sepsis with septic shock Status: Acute Assessment and Plan: Septic shock likely related to infective cause for bacteremia. Right knee joint aspiration and not reveal a septic joint, paracentesis did not reveal SBP -blood cultures have been obtained -continues Zosyn, added vancomycin -patient on vasopressin, Kb-Synephrine, norepinephrine maintain mean arterial pressures greater than 60-65 mmHg -continue stress dose steroids (4) ESRD (end stage renal disease): Code(s): N18.6 - End stage renal disease Status: Chronic Assessment and Plan: End-stage renal disease on dialysis, patient has a right upper arm fistula -patient gets dialyzed on Mondays, and Fridays. -nephrology following the patient -given the severe metabolic acidosis, general consensus is the patient has to be transferred to outside facility was CRRT -patient has been accepted to [facility] but did not have a bed available, -patient has been accepted to [facility] for CRRT (5) Metabolic acidosis: Code(s): E87.2 - Acidosis Status: Acute Assessment and Plan: On sodium bicarb infusion -will be transferred to [facility] for CRRT (6) Diabetes mellitus: Qualifiers: Diabetes mellitus complication status: with other specified complication Diabetes mellitus parts counterman insulin use: without parts counterman use Diabetes mellitus type: type 2 Qualified Code(s): E11.69 - Type 2 diabetes mellitus with other specified complication Code(s): E11.9 - Type 2 diabetes mellitus without complications Status: Chronic Assessment and Plan: Patient has been hypoglycemic requiring D50. -currently on sodium bicarb in D5 with improvement in his blood sugars. Additional Plan Discussed with patient's spouse, son and also called the daughter Jennifer on the phone updated them with patient's condition and plan of care. I did discuss with them regarding severe metabolic acidosis and that the patient would benefit from CRRT and be transferring to [facility]. They are agreeable. They are aware that he is on 3 blood pressure support medications. They they requested patient be a DNR at this time Code status: DNR Critical care time spent: 53 minutes This dictation may have been done utilizing a voice recognition system. Attempts have been made to correct errors. However, there may be uncorrected grammatical, spelling, and recognition errors present. Due to a high probability of clinically significant, life threatening deterioration, the patient required my highest level of preparedness to intervene emergently and I personally spent this critical care time directly and personally
--- NOTE | 2020-07-05 09:19 | PM.CNNEP ---
Assessment and Plan Assessment and plan (1) ESRD (end stage renal disease): Code(s): N18.6 - End stage renal disease Status: Chronic Assessment and Plan: Raymundo has end-stage renal disease. He gets dialysis 3 days a week. He is due for dialysis today. Volume overload is not an issue at this point, because of the severity of his hypotension. His potassium is okay, surprisingly. He has severe metabolic acidosis. Dialysis could possibly correct the metabolic acidosis at least in part, however because of his severely low blood pressure I do not think he would survive conventional dialysis. He needs continuous renal replacement therapy. We do not have that at this hospital. So Dr. Amador is trying to get him transferred to [facility]. (2) Cardiac arrest: Code(s): I46.9 - Cardiac arrest, cause unspecified Status: Acute Assessment and Plan: He had several minutes of CPR. His blood pressure is very low. He is on pressors. Very acidotic with a high lactic acid. Patient is getting a bicarb drip and also additional amps of bicarbonate. (3) Septic shock: Code(s): A41.9 - Sepsis, unspecified organism; R65.21 - Severe sepsis with septic shock Status: Acute Assessment and Plan: Source is unclear. His graft looks okay. He has multiple wounds on his legs which could be a point of entry. Chest x-ray shows infiltrates, fluid versus pneumonia. Ascites was tapped and synovial fluid was tapped as well. Blood cultures have been drawn. The patient does on broad-spectrum antibiotics. (4) Anemia: Qualifiers: Anemia type: unspecified type Qualified Code(s): D64.9 - Anemia, unspecified Code(s): D64.9 - Anemia, unspecified Status: Chronic Assessment and Plan: hemoglobin is 9.9. Will give EPO once he gets dialysis. (5) CHF (congestive heart failure): Qualifiers: Heart failure type: unspecified Heart failure chronicity: chronic Qualified Code(s): I50.9 - Heart failure, unspecified Code(s): I50.9 - Heart failure, unspecified Status: Chronic Assessment and Plan: Ejection fraction is low. AICD in place. (6) Afib: Qualifiers: Atrial fibrillation type: unspecified Qualified Code(s): I48.91 - Unspecified atrial fibrillation Code(s): I48.91 - Unspecified atrial fibrillation Status: Chronic Assessment and Plan: Paced rhythm right now (7) Charcot foot due to diabetes mellitus: Code(s): E11.610 - Type 2 diabetes mellitus with diabetic neuropathic arthropathy Status: Acute (8) Diabetes mellitus: Qualifiers: Diabetes mellitus type: type 2 Diabetes mellitus long term care administrator insulin use: without long term care administrator use Diabetes mellitus complication status: with other specified complication Qualified Code(s): E11.69 - Type 2 diabetes mellitus with other specified complication Code(s): E11.9 - Type 2 diabetes mellitus without complications Status: Chronic Assessment and Plan: on Accu-Cheks and sliding-scale insulin History of Present Illness Reason for Consult Consult date: 07/05/20 Chief Complaint Chief complaint: cardiopulmonary arrest, septic shock History of Present Illness Narrative: Raymundo is a very pleasant 70 year year old gentleman who has multiple medical problems including congestive heart failure with an AICD, diabetes, Charcot feet, chronic edema with some leg wounds, fractured femur which was repaired last month at [place], end-stage renal disease on dialysis under Dr. Vincent. He goes 3 times a week and is due today. The patient came to the emergency room because of right knee pain. He was hypoxic in the ER and he was placed on oxygen. Evaluation in suit. Unfortunately patient had a cardiac arrest at around 8:00 p.m.. He had several minutes of CPR. They tried to transfer him to [place] because that is where his s
[2020-07-05 09:20] LABS: Glucose Point of Care 175 (65-105)
--- NOTE | 2020-07-05 10:58 | PCWOUND ---
WOCN NOTE Received notice of pressure wounds present on patient. unable to assess patient being transferred to [facility].
[2020-07-05] MEDS: SODIUM BICARBONATE 8.4% 50 MEQ/50 ML SYRINGE 100 MEQ (11:07)
--- NOTE | 2020-07-05 15:42 | PM.TDS ---
Transfer Discharge Sum: Prov Provider Date of admission: 07/04/20 22:34 Primary care physician: Juan Sykes MD Admitting clinician: Tuan Harding MD Consults: 07/04/20 22:35 Consult to Physician Routine Comment: Consulting Provider: Luis Amador Reason for consultation: cardiopulmonary arrest, septic shock Has provider been notified: Yes 07/05/20 01:36 Consult to Physician Routine Comment: message left with exchange Consulting Provider: Wale Rucker bilingual call center representative/MD group to consult: Cardiology Reason for consultation: Cardiac arrest Has provider been notified: Yes 07/05/20 01:40 Consult to Physician Routine Comment: called exchange with consult information Consulting Provider: Prashant Mcrae bilingual call center representative/MD group to consult: Nephrology Reason for consultation: End-stage renal disease on dialysis Has provider been notified: Yes DS: Admitting Diagnosis Admitting Diagnosis Admitting Diagnosis: cardiac arrest, septic shock DS: Discharge Diagnosis Discharge Diagnosis (1) Metabolic acidosis: Code(s): E87.2 - Acidosis Status: Acute (2) Hypothyroidism: Code(s): E03.9 - Hypothyroidism, unspecified Status: Chronic (3) Cardiac arrest: Code(s): I46.9 - Cardiac arrest, cause unspecified Status: Acute (4) Acute respiratory failure: Qualifiers: Respiratory failure complication: unspecified whether with hypoxia or hypercapnia Qualified Code(s): J96.00 - Acute respiratory failure, unspecified whether with hypoxia or hypercapnia Code(s): J96.00 - Acute respiratory failure, unspecified whether with hypoxia or hypercapnia Status: Acute (5) Septic shock: Code(s): A41.9 - Sepsis, unspecified organism; R65.21 - Severe sepsis with septic shock Status: Acute (6) Diabetes mellitus: Qualifiers: Diabetes mellitus type: type 2 Diabetes mellitus supervisor intermediates insulin use: without halfway use Diabetes mellitus complication status: with other specified complication Qualified Code(s): E11.69 - Type 2 diabetes mellitus with other specified complication Code(s): E11.9 - Type 2 diabetes mellitus without complications Status: Chronic (7) CHF (congestive heart failure): Qualifiers: Heart failure type: unspecified Heart failure chronicity: chronic Qualified Code(s): I50.9 - Heart failure, unspecified Code(s): I50.9 - Heart failure, unspecified Status: Chronic (8) Afib: Qualifiers: Atrial fibrillation type: unspecified Qualified Code(s): I48.91 - Unspecified atrial fibrillation Code(s): I48.91 - Unspecified atrial fibrillation Status: Chronic (9) ESRD (end stage renal disease): Code(s): N18.6 - End stage renal disease Status: Chronic (10) Dialysis patient: Code(s): Z99.2 - Dependence on renal dialysis Status: Acute Transfer Discharge Sum: Med Medications Active and Home Medications: Home Medications amiodarone 200 mg tablet 200 mg PO DAILY 08/17/19 [History Confirmed 07/05/20] ascorbic acid (vitamin C) 1,000 mg tablet 1 gm PO DAILY 08/17/19 [History Confirmed 07/05/20] atorvastatin 20 mg tablet 20 mg PO DAILY 08/17/19 [History Confirmed 07/05/20] cholecalciferol (vitamin D3) 125 mcg (5,000 unit) capsule 125 mcg PO DAILY 08/17/19 [History Confirmed 07/05/20] glucosamine 750 [id number] 644 mg-C 30 mg-daiana 1 mg tablet 2 tablet PO DAILY tablet 08/17/19 [History Confirmed 07/05/20] magnesium 200 mg tablet 400 mg PO DAILY tablet 08/17/19 [History Confirmed 07/05/20] mecobalamin (vitamin B12) 5,000 mcg disintegrating tablet 5,000 mcg PO DAILY 08/17/19 [History Confirmed 07/05/20] mexiletine 150 mg capsule 150 mg PO Q12H cap 08/17/19 [History Confirmed 07/05/20] gemfibrozil 600 mg tablet 300 mg PO BID #90 tablet 12/22/19 [Rx Confirmed 07/05/20] levothyroxine 150 mcg tablet 150 mcg PO DAILY #90 tablet 12/22/19 [Rx Confirmed
== END 2020-07-05 11:36 | disposition short-term general hospital (02) | DRG 871 ==
LOC: ANHED 17:19 → ANHICU 23:12
PROVIDERS: Admitting Provider Family Medicine; Emergency Provider Emergency Medicine; PCP Family Medicine; Visit Provider Internal Medicine
DX: A41.9 Sepsis, unspecified organism (principal); R65.21 Severe sepsis with septic shock; J96.00 Acute respiratory failure, unspecified whether with hypoxia or hypercapnia; I46.9 Cardiac arrest, cause unspecified; N18.6 End stage renal disease; I42.0 Dilated cardiomyopathy; E87.2 Acidosis; R18.8 Other ascites; D72.829 Elevated white blood cell count, unspecified; D69.6 Thrombocytopenia, unspecified; M25.461 Effusion, right knee; D64.9 Anemia, unspecified; I50.9 Heart failure, unspecified; I48.91 Unspecified atrial fibrillation; E11.22 Type 2 diabetes mellitus with diabetic chronic kidney disease; Z99.2 Dependence on renal dialysis; E03.9 Hypothyroidism, unspecified; E11.610 Type 2 diabetes mellitus with diabetic neuropathic arthropathy; Z96.653 Presence of artificial knee joint, bilateral; Z66 Do not resuscitate; Z79.899 Other long term (current) drug therapy; Z95.810 Presence of automatic (implantable) cardiac defibrillator; Z98.890 Other specified postprocedural states
CPT/HCPCS: 20610; 31500; 36415; 36556; 36600; 49083; 70450; 71045; 71275; 73560; 74018; 74177; 80048; 80053; 82042; 82140; 82375; 82805; 82948; 83050; 83605; 83735; 84100; 84484; 85025; 85027; 85055; 85610; 85652; 85730; 86140; 87040; 87070; 87075; 87077; 87186; 87205; 88108; 89051; 93005; 94003; 96365; 96367; 96375; 99285; A9270; C1751; J0171; J0696; J1720; J2370; J2543; J3370; J7040; J7042; J7060; J7070; Q9967